=== PATIENT | female | born 1970 | race Caucasian/White ===

== ENCOUNTER → 2017-11-07 09:32 | Outpatient (CLI) | payer BC, SELFPAY ==
[2017-11-07 12:39] LABS: Microalbumin,Random Urine 8.2 mg/L (NO RANGE EST.); Microalbumin:Creatinine Ratio 6.9 mg/g CRE (<30 mg/g CRE)
[2017-11-07 12:58] LABS: Anion Gap 9 (5-15); BUN 9 mg/dL (7-18); BUN/Creat Ratio 10.8 RATIO (10-20); Calcium,Total 8.3 mg/dL (8.5-10.1); Chloride 106 mmol/L (98-107); Cholesterol 178 mg/dL (200); Creatinine, Serum 0.84 mg/dL (0.55-1.02); EST Glomerular Filtration Rate 78 mL/min (>60); Est Glom Filt Rate - Afr Amer 94 mL/min (>60); Glucose 93 mg/dL (74-106); High Density Lipoprotein 47 mg/dL; Potassium 4.1 mmol/L (3.5-5.1); Sodium Level 138 mmol/L (136-145); Triglycerides 235 mg/dL; Very Low Density Lipoprotein 47 mg/dL (5-40)
== END ==
PROVIDERS: Family Provider Family Medicine; PCP Family Medicine; Visit Provider Family Medicine
DX: E11.9 Type 2 diabetes mellitus without complications (principal)
CPT/HCPCS: 36415; 80048; 80061; 82043; 82570

== ENCOUNTER → 2018-01-15 12:14 | Outpatient (CLI) | payer BC, SELFPAY ==
[2018-01-17 20:07] LABS: Alternaria alternata 0.17 kU/L (Class 0/I); Aspergillus fumigatus 0.22 kU/L (Class 0/I); Cedar, Mountain 7.68 kU/L (Class IV); Cladosporium herbarum 0.16 kU/L (Class 0/I); Cockroach, American 1.84 kU/L (Class III); D farinae Mite 3.05 kU/L (Class III); D pteronyssinus 2.67 kU/L (Class III); Hazelnut Tree 4.28 kU/L (Class IV); Hickory, White 8.97 kU/L (Class IV); Mucor racemosus 1.67 kU/L (Class III); Mugwort 8.03 kU/L (Class IV); Mulberry, White 6.09 kU/L (Class IV); Penicillium chrysogen 0.11 kU/L (Class 0/I); Stemphylium herbarum 0.19 kU/L (Class 0/I); Sweet Gum 9.78 kU/L (Class IV)
== END ==
PROVIDERS: Family Provider Family Medicine; PCP Family Medicine; Visit Provider Family Medicine
DX: J45.909 Unspecified asthma, uncomplicated (principal)
CPT/HCPCS: 36415; 86003

== ENCOUNTER → 2018-05-30 09:02 | Outpatient (CLI) | payer BC, SELFPAY ==
[2018-05-30 10:30] LABS: AST(SGOT) 14 U/L (15-37); Alanine Aminotransfer ALT/SGPT 28 U/L (13-56); Albumin, Serum 3.5 g/dL (3.2-5.0); Alkaline Phosphatase 73 U/L (45-117); Anion Gap 10 (5-15); BUN 14 mg/dL (7-18); BUN/Creat Ratio 16.4 RATIO (10-20); Bilirubin, Direct 0.19 mg/dL (0.00-0.30); Chloride 103 mmol/L (98-107); Cholesterol 243 mg/dL (200); Creatinine, Serum 0.85 mg/dL (0.55-1.02); EST Glomerular Filtration Rate 76 mL/min (>60); Est Glom Filt Rate - Afr Amer 92 mL/min (>60); Globulin 3.6 g/dL (2.2-4.2); Glucose 173 mg/dL (74-106); High Density Lipoprotein 56 mg/dL; Potassium 4.3 mmol/L (3.5-5.1); Protein, Total 7.1 g/dL (6.4-8.2); Sodium Level 140 mmol/L (136-145); Triglycerides 304 mg/dL; Very Low Density Lipoprotein 61 mg/dL (5-40)
[2018-05-30 10:36] LABS: Microalbumin,Random Urine 21.7 mg/L (NO RANGE EST.); Microalbumin:Creatinine Ratio 11.9 mg/g CRE (<30 mg/g CRE)
== END ==
PROVIDERS: Family Provider Family Medicine; PCP Family Medicine; Referring Provider Family Medicine; Visit Provider Family Medicine
DX: E11.9 Type 2 diabetes mellitus without complications (principal)
CPT/HCPCS: 36415; 80048; 80061; 80076; 82043; 82570

== ENCOUNTER 2018-08-04 14:51 | Emergency (ER) | payer BC, SELFPAY ==
[2018-08-04 14:53] VITALS: BP 190/95; PULSE 107; RESP 18; TEMP 36.8; O2SAT 96; BMI 38.7
--- NOTE | 2018-08-04 15:11 | CT_ITS ---
STUDY: CT BRAIN WITHOUT CONTRAST REASON FOR EXAM: Female, 48 years old. Vision. Hypertension. RADIATION DOSAGE (If Supplied By Facility): CTDIvol = ( 44.99 ) mGy, DLP = ( 762.36 ) mGycm TECHNIQUE: Transaxial CT imaging of the brain was performed without administration of intravenous contrast material. Individualized dose optimization techniques were used for this CT. COMPARISON: No relevant priors. FINDINGS: Normal soft tissue structures. Normal calvarium. Normal size ventricles and extra-axial spaces for the patient's age. Normal white matter tracts of the cerebral hemispheres. Normal basal ganglia and thalami. Normal brainstem. Normal cerebellum. There is no intracranial hemorrhage. There are no findings of an acute ischemic infarction. Small air-fluid level in the sphenoid sinus. Partial opacification of the ethmoid sinuses. CT/Brain/Head without Contrast IMPRESSION: Ethmoid sinusitis and a sphenoid sinusitis. Electronically Signed: Louie Rice, at 15:46 EDT , Service support ,
--- NOTE | 2018-08-04 15:13 | ED.VISSUMM ---
- ER Visit Summary Date of Service: 08/04/18 Chief Complaint: Visual disturbance History of Present Illness: The patient is a 48 F who presents with visual change in her left eye that began today present 1 hour prior to arrival. Patient states her left eye was slightly blurry but 1 hour prior to arrival she felt a pop around her left eye and her vision became more blurry. Patient states the vision out of her right eye is completely normal. Patient admits to a headache around her left eye. Patient nausea or vomiting. Patient denies any fevers or chills. Patient denies any chest pain or shortness of breath. Patient does admit to photophobia. Patient denies any matting, crusting, discharge, drainage, redness, or foreign body sensation. Patient denies any injury. Physical Examination: Vital signs are stable except for an elevated blood pressure 190/95. Heart rate was slightly elevated at 107. Patient is afebrile. Patient is in no acute distress. Pupils are equal, round, and reactive to light bilaterally. Extraocular muscles are intact. Funduscopic examination was not well visualized due to myosis despite the patient being in a dark room. Cranial nerves II through XII are intact. There are no focal motor or sensory deficits noted. I do not appreciate any facial weakness. Heart was regular rate and rhythm. Lungs are clear and equal bilateral. Abdomen is soft nontender. Test Results: CBC and basic metabolic profile were obtained and were essentially within normal limits. CT scan of the brain was obtained. There is sphenoid sinusitis with no acute intracranial abnormality. Emergency Department Course and Treatment: Patient was given a dose of labetalol here. Patient's blood pressure improved. Case was discussed with Dr. Hinson from ophthalmology. He felt that this was most likely a vitreous hemorrhage. He will follow-up with the patient in the office tomorrow. Patient was instructed to call tomorrow morning to schedule an appointment. Patient was given a prescription for Augmentin to cover for sinusitis. Patient and family understood and were agreeable with the plan. All questions were answered. Disposition: Discharge home Impression: 1. Vitreous hemorrhage 2. Sphenoid sinusitis This note was generated with [employer] software. It may contain incorrect words, spelling, and punctuation that were not noted in review of the chart prior to signing ED Disposition - Plan for ED Patient: Disposition: Home or Assisted Living Diagnosis: Vitreous hemorrhage of left eye, Sphenoid sinusitis Instructions: ED Sinusitis Abx Tx Prescriptions: Amox/Clavulanate Tablet [Augmentin Tablet] 875 mg PO Q12H #20 tab Referrals: Daniel Castorena MD [Primary Care Provider] - Roberto Hinson MD [STAFF PHYSICIAN] - 1 Day Additional Instructions: Call Dr. Hinson's office tomorrow morning. He will see you tomorrow for further evaluation of your eye.
[2018-08-04 15:47] LABS: Absolute Neutrophil Count 4.4 X10^3/uL (2.0-7.7); Basophil# 0.02 X10^3/uL; Basophil% 0.3 % (0-1); Eosinophil# 0.38 X10^3/uL; Hematocrit 39.9 % (37-47); Hemoglobin 12.8 g/dl (12.0-15.0); Lymphocyte % 28.8 % (19-41); Mean Corp Hgb Conc 32.1 g/gl (32-36); Mean Corpuscular Hgb 25.3 pg (27.0-32.0); Mean Corpuscular Volume 78.9 fL (81-99); Mean Platelet Vol. 10.3 fl (6.2-12.0); Monocyte# 0.63 X10^3/uL; Monocyte% 8.2 % (0-10); Neutrophil # 4.41 X10^3/uL (2.7-7.7); Neutrophil % 57.6 % (47-70); Platelet Count 313 K/mm3 (150-450); RBC Distribution Width CV 15.7 % (11.6-14.6); RBC Distribution Width SD 45.2 fl (35.1-43.9); Red Blood Count 5.06 M/mm3 (4.2-5.4); White Blood Count 7.7 K/mm3 (4.4-11.0)
[2018-08-04 15:49] LABS: POSITIVE COUNT NO; POSITIVE DIFFERENTIAL NO; POSITIVE MORPHOLOGY NO
[2018-08-04] MEDS: Ibuprofen 200 MG Tablet 800 MG PO (15:51)
--- NOTE | 2018-08-04 15:53 | ED.RN ---
called pharmacy regarding trandate. will send medication.
[2018-08-04 16:00] VITALS: BP 160/95; PULSE 95; RESP 17; O2SAT 97
[2018-08-04 16:05] LABS: Anion Gap 6 (5-15); BUN 15 mg/dL (7-18); BUN/Creat Ratio 16.4 RATIO (10-20); Calcium,Total 8.7 mg/dL (8.5-10.1); Chloride 109 mmol/L (98-107); Creatinine, Serum 0.92 mg/dL (0.55-1.02); EST Glomerular Filtration Rate 70 mL/min (>60); Est Glom Filt Rate - Afr Amer 84 mL/min (>60); Estimated Creatinine Clearance 70.77 ml/min; Glucose 168 mg/dL (74-106); Potassium 3.9 mmol/L (3.5-5.1); Sodium Level 138 mmol/L (136-145)
[2018-08-04 16:49] VITALS: BP 146/96; PULSE 93; RESP 12; O2SAT 96
== END 2018-08-04 16:57 | disposition home or self-care (01) ==
PROVIDERS: Emergency Provider Emergency Medicine; Family Provider Family Medicine; PCP Family Medicine
DX: H43.12 Vitreous hemorrhage, left eye (principal); J32.3 Chronic sphenoidal sinusitis
CPT/HCPCS: 70450; 80048; 85025; 96374; 99285; A4216

== ENCOUNTER → 2018-08-11 | Outpatient (CLI) | payer BC, SELFPAY ==
[2018-08-04 14:53] VITALS: BMI 38.7
--- NOTE | 2018-08-11 14:00 | CDU_ITS ---
Reason For Study: Headaches Rt. Velocities/BP Lt. Velocities/BP Prox CCA 113/12 cm/sec. Prox CCA 93/25 cm/sec. Mid CCA 109/15 cm/sec. Mid CCA 75/27 cm/sec. Dist CCA 70/24 cm/sec. Dist CCA 82/27 cm/sec. Prox ICA 60/18 cm/sec. Prox ICA 61/24 cm/sec. Mid ICA 67/27 cm/sec. Mid ICA 90/44 cm/sec. Dist ICA 80/39 cm/sec. Dist ICA 81/39 cm/sec. Rt. ICA/CCA = 0.7. Lt. ICA/CCA = 1.2. Prox ECA 82/11 cm/sec. Prox ECA 101/16 cm/sec. Rt. Vert. 50/20 cm/sec. Lt. Vert. 61/20 cm/sec. Right Extracranial There is intimal thickening but no significant atherosclerotic plaque noted in the right common carotid artery. There is heterogeneous, smooth atherosclerotic plaque noted in the right internal carotid artery. There is intimal thickening but no significant atherosclerotic plaque noted in the right external carotid artery. Antegrade flow is noted in the right vertebral artery. Left Extracranial There is intimal thickening but no significant atherosclerotic plaque noted in the left common carotid artery. There is heterogeneous, smooth atherosclerotic plaque noted in the left internal carotid artery. There is intimal thickening but no significant atherosclerotic plaque noted in the left external carotid artery. Antegrade flow is noted in the left vertebral artery. Procedure Carotid Duplex [id number]. Exam performed in department. Interpretation Summary Mild (<50%) stenosis right extracranial internal carotid. Mild (<50%) stenosis left extracranial internal carotid. Flow within the vertebral arteries is antegrade bilaterally. Ordering Physician: Roberto Hinson Referring Physician: Daniel Castorena Performed By: Sugey Maldonado, MILKA, RVT
== END | disposition home or self-care (01) ==
LOC: CVS 13:58
PROVIDERS: Family Provider Family Medicine; PCP Family Medicine; Referring Provider Ophthalmology; Visit Provider Ophthalmology
DX: H35.82 Retinal ischemia (principal)
CPT/HCPCS: 93880

== ENCOUNTER → 2018-08-28 | Outpatient (CLI) | payer BC, SELFPAY ==
[2018-08-04 14:53] VITALS: BMI 38.7
[2018-08-28 12:16] LABS: Absolute Lymphocyte Count 2.21 X10^3/ul (0.83-4.51); Absolute Neutrophil Count 5.2 X10^3/uL (2.0-7.7); Basophil# 0.03 X10^3/uL; Basophil% 0.4 % (0-1); Eosinophil# 0.34 X10^3/uL; Hematocrit 40.9 % (37-47); Hemoglobin 12.7 g/dl (12.0-15.0); Lymphocyte # 2.21 X10^3/ul (4.0); Lymphocyte % 26.1 % (19-41); Mean Corp Hgb Conc 31.1 g/gl (32-36); Mean Corpuscular Hgb 24.8 pg (27.0-32.0); Mean Corpuscular Volume 79.9 fL (81-99); Mean Platelet Vol. 10.6 fl (6.2-12.0); Monocyte# 0.72 X10^3/uL; Monocyte% 8.5 % (0-10); Neutrophil # 5.16 X10^3/uL (2.7-7.7); Neutrophil % 60.8 % (47-70); Platelet Count 350 K/mm3 (150-450); RBC Distribution Width CV 15.2 % (11.6-14.6); RBC Distribution Width SD 43.7 fl (35.1-43.9); Red Blood Count 5.12 M/mm3 (4.2-5.4); White Blood Count 8.5 K/mm3 (4.4-11.0)
[2018-08-28 12:20] LABS: POSITIVE COUNT NO; POSITIVE DIFFERENTIAL NO; POSITIVE MORPHOLOGY NO
[2018-08-28 12:48] LABS: AST(SGOT) 12 U/L (15-37); Alanine Aminotransfer ALT/SGPT 18 U/L (13-56); Albumin, Serum 3.5 g/dL (3.2-5.0); Alkaline Phosphatase 78 U/L (45-117); Anion Gap 9 (5-15); BUN 21 mg/dL (7-18); BUN/Creat Ratio 23.1 RATIO (10-20); Bilirubin, Direct 0.15 mg/dL (0.00-0.30); Calcium,Total 8.6 mg/dL (8.5-10.1); Chloride 111 mmol/L (98-107); Cholesterol 190 mg/dL (200); Creatinine, Serum 0.91 mg/dL (0.55-1.02); EST Glomerular Filtration Rate 71 mL/min (>60); Est Glom Filt Rate - Afr Amer 85 mL/min (>60); Globulin 3.5 g/dL (2.2-4.2); Glucose 169 mg/dL (74-106); High Density Lipoprotein 50 mg/dL; Potassium 4.1 mmol/L (3.5-5.1); Sodium Level 139 mmol/L (136-145); Thyroid Stim Hormone (TSH) 2.44 uIU/mL (0.358-3.74); Triglycerides 184 mg/dL; Very Low Density Lipoprotein 37 mg/dL (5-40)
== END | disposition home or self-care (01) ==
LOC: MFPLAB 09:40
PROVIDERS: Family Provider Family Medicine; PCP Family Medicine; Referring Provider Family Medicine; Visit Provider Family Medicine
DX: E11.9 Type 2 diabetes mellitus without complications (principal); R07.9 Chest pain, unspecified
CPT/HCPCS: 36415; 80048; 80061; 80076; 84443; 85025

== ENCOUNTER → 2018-11-14 | Outpatient (CLI) | payer BC, SELFPAY ==
[2018-11-14 10:53] LABS: Absolute Lymphocyte Count 2.11 X10^3/ul (0.83-4.51); Absolute Neutrophil Count 4.3 X10^3/uL (2.0-7.7); Basophil# 0.03 X10^3/uL; Basophil% 0.4 % (0-1); Eosinophil# 0.25 X10^3/uL; Eosinophils% 3.3 % (0-5); Hemoglobin 11.7 g/dl (12.0-15.0); Lymphocyte # 2.11 X10^3/ul (4.0); Lymphocyte % 28.2 % (19-41); Mean Corp Hgb Conc 30.8 g/gl (32-36); Mean Corpuscular Hgb 23.6 pg (27.0-32.0); Mean Corpuscular Volume 76.6 fL (81-99); Mean Platelet Vol. 10.7 fl (6.2-12.0); Monocyte# 0.78 X10^3/uL; Monocyte% 10.4 % (0-10); Neutrophil # 4.28 X10^3/uL (2.7-7.7); Neutrophil % 57.4 % (47-70); Platelet Count 365 K/mm3 (150-450); RBC Distribution Width CV 14.7 % (11.6-14.6); RBC Distribution Width SD 39.9 fl (35.1-43.9); Red Blood Count 4.96 M/mm3 (4.2-5.4); White Blood Count 7.5 K/mm3 (4.4-11.0)
[2018-11-14 10:58] LABS: POSITIVE COUNT NO; POSITIVE DIFFERENTIAL NO; POSITIVE MORPHOLOGY NO
[2018-11-14 10:59] LABS: ALB/GLOB Ratio 0.8 RATIO (0.9-2.4); AST(SGOT) 13 U/L (15-37); Alanine Aminotransfer ALT/SGPT 26 U/L (13-56); Albumin, Serum 3.3 g/dL (3.2-5.0); Alkaline Phosphatase 76 U/L (45-117); Anion Gap 7 (5-15); BUN 14 mg/dL (7-18); BUN/Creat Ratio 15.2 RATIO (10-20); Calcium,Total 8.9 mg/dL (8.5-10.1); Chloride 108 mmol/L (98-107); Creatinine, Serum 0.92 mg/dL (0.55-1.02); EST Glomerular Filtration Rate 69 mL/min (>60); Est Glom Filt Rate - Afr Amer 84 mL/min (>60); Globulin 3.9 g/dL (2.2-4.2); Glucose 169 mg/dL (74-106); Potassium 4.2 mmol/L (3.5-5.1); Protein, Total 7.2 g/dL (6.4-8.2); Sodium Level 140 mmol/L (136-145)
== END | disposition home or self-care (01) ==
LOC: MFPLAB 08:38
PROVIDERS: Family Provider Family Medicine; PCP Family Medicine; Visit Provider Family Medicine
DX: R19.8 Other specified symptoms and signs involving the digestive system and abdomen (principal)
CPT/HCPCS: 36415; 80053; 85025

== ENCOUNTER → 2018-11-14 | Outpatient (CLI) | payer BC, SELFPAY ==
--- NOTE | 2018-11-14 11:08 | CT_ITS ---
STUDY: CT ABDOMEN AND PELVIS WITH CONTRAST REASON FOR EXAM: Female, 48 years old. One week history of right-sided abdominal pain with vomiting. RADIATION DOSAGE (If Supplied By Facility): CTDIvol = ( 23.72 ) mGy, DLP = ( 1340.60 ) mGycm TECHNIQUE: Transaxial images were obtained from the dome of the diaphragm to the symphysis pubis with oral contrast. 100mL IV/Oral Isovue 300 was administered. Sagittal and coronal images were reconstructed. Individualized dose optimization techniques were used for this CT. COMPARISON: None. FINDINGS: The visualized lung bases are unremarkable. The visualized portions of the heart are within normal limits. There is decreased attenuation of the liver consistent with steatosis. Normal gallbladder and extrahepatic biliary system. Normal spleen. Normal pancreas. Normal bilateral adrenal glands. Normal right kidney. Normal left kidney. There is a small hiatal hernia. Normal small intestine. There are multiple colonic diverticula consistent with diverticulosis. The appendix is visualized and appears normal. There is scattered atherosclerotic calcification of the abdominal aorta, without a demonstrated aneurysm. Normal inferior vena cava. Normal retroperitoneum. Normal urinary bladder. Normal abdominal wall. There are mild degenerative changes of the visualized lumbar spine. CT/Abdomen/Pelvis WITH Contrast IMPRESSION: Fatty infiltration of the liver. No significant abnormality is seen. Electronically Signed: Louie Rice, at 14:25 EDT , Service support ,
== END | disposition home or self-care (01) ==
LOC: CT 11:05
PROVIDERS: Family Provider Family Medicine; PCP Family Medicine; Visit Provider Family Medicine
DX: R19.8 Other specified symptoms and signs involving the digestive system and abdomen (principal)
CPT/HCPCS: 74177; Q9967

== ENCOUNTER → 2019-03-04 | Outpatient (CLI) | payer BC, SELFPAY ==
[2019-03-04 14:21] LABS: Anion Gap 9 (5-15); BUN 14 mg/dL (7-18); BUN/Creat Ratio 14.8 RATIO (10-20); Chloride 106 mmol/L (98-107); Cholesterol 172 mg/dL (200); Creatinine, Serum 0.94 mg/dL (0.55-1.02); EST Glomerular Filtration Rate 67 mL/min (>60); Est Glom Filt Rate - Afr Amer 81 mL/min (>60); Glucose 129 mg/dL (74-106); High Density Lipoprotein 57 mg/dL; Potassium 4.1 mmol/L (3.5-5.1); Sodium Level 139 mmol/L (136-145); Triglycerides 174 mg/dL; Very Low Density Lipoprotein 35 mg/dL (5-40)
== END | disposition home or self-care (01) ==
LOC: MFPLAB 11:58
PROVIDERS: Family Provider Family Medicine; PCP Family Medicine; Visit Provider Family Medicine
DX: E11.9 Type 2 diabetes mellitus without complications (principal)
CPT/HCPCS: 36415; 80048; 80061

== ENCOUNTER → 2019-09-03 | Outpatient (CLI) | payer BC, SELFPAY ==
--- NOTE | 2019-09-03 16:47 | RAD_ITS ---
STUDY: X-RAY CHEST REASON FOR EXAM: Female, 49 years old. mid chest pain, woke up this morning -- some burning TECHNIQUE: 2 views COMPARISON: Prior chest radiograph on April 10, 2017 FINDINGS: The lungs are clear and expanded. There is no demonstrated pleural abnormality. Normal size heart. Normal mediastinum and nicolas. Normal visualized pulmonary arteries. Normal visualized aortic arch and descending thoracic aorta. Normal visualized thoracic spine. Normal visualized ribs, clavicles, and shoulders. There is no demonstrated abnormality of the visualized soft tissue structures of the upper abdomen. RAD/Chest PA and Lateral IMPRESSION: Normal x-ray examination of the chest. Electronically Signed: Miryam Vargas MD at 17:03 EDT , Service support ,
[2019-09-03 17:33] LABS: Absolute Lymphocyte Count 2.87 X10^3/uL (0.83-4.51); Basophil# 0.04 X10^3/uL; Basophil% 0.4 % (0-1); Eosinophil# 0.38 X10^3/uL; Eosinophils% 3.7 % (0-5); Hematocrit 42.7 % (37-47); Hemoglobin 12.8 g/dL (12.0-15.0); Lymphocyte # 2.87 X10^3/ul (4.0); Lymphocyte % 28.2 % (19-41); Mean Corpuscular Hgb 23.3 pg (27.0-32.0); Mean Corpuscular Volume 77.6 fL (81-99); Mean Platelet Vol. 9.9 fl (6.2-12.0); Monocyte# 0.87 X10^3/uL; Monocyte% 8.5 % (0-10); NRBC Flagged by Analyzer 0 % (0-5); Platelet Count 330 K/mm3 (150-450); RBC Distribution Width CV 17.2 % (11.6-14.6); White Blood Count 10.2 K/mm3 (4.4-11.0)
[2019-09-03 17:59] LABS: D-Dimer Quantitative (DVT/PE) <= 0.27 FEU/ug/m (0.27-0.49)
[2019-09-03 18:21] LABS: Anion Gap 9 (5-15); BUN 14 mg/dL (7-18); BUN/Creat Ratio 14.8 RATIO (10-20); Calcium,Total 9.2 mg/dL (8.5-10.1); Chloride 106 mmol/L (98-107); Creatinine, Serum 0.94 mg/dL (0.55-1.02); EST Glomerular Filtration Rate 67 mL/min (>60); Est Glom Filt Rate - Afr Amer 81 mL/min (>60); Glucose 118 mg/dL (74-106); Potassium 3.8 mmol/L (3.5-5.1); Sodium Level 138 mmol/L (136-145)
== END | disposition home or self-care (01) ==
LOC: MTLAB 16:45
PROVIDERS: PCP Family Medicine; Referring Provider Family Medicine; Visit Provider Family Medicine
DX: R07.9 Chest pain, unspecified (principal)
CPT/HCPCS: 36415; 71046; 80048; 85025; 85379

== ENCOUNTER → 2020-05-26 15:19 | Outpatient (CLI) | payer BC, SELFPAY ==
[2020-05-26 18:15] LABS: Anion Gap 10 (5-15); BUN 16 mg/dL (7-18); BUN/Creat Ratio 18.8 RATIO (10-20); Chloride 106 mmol/L (98-107); Cholesterol 175 mg/dL (200); Creatinine, Serum 0.85 mg/dL (0.55-1.02); EST Glomerular Filtration Rate 75 mL/min (>60); Est Glom Filt Rate - Afr Amer 91 mL/min (>60); Glucose 93 mg/dL (74-106); High Density Lipoprotein 58 mg/dL; Potassium 4.5 mmol/L (3.5-5.1); Sodium Level 139 mmol/L (136-145); Triglycerides 221 mg/dL; Very Low Density Lipoprotein 44 mg/dL (5-40)
== END ==
PROVIDERS: PCP Family Medicine; Referring Provider Family Medicine; Visit Provider Family Medicine
DX: E11.9 Type 2 diabetes mellitus without complications (principal)
CPT/HCPCS: 36415; 80048; 80061; 82043

== ENCOUNTER → 2020-06-15 | Outpatient (CLI) | payer BC, SELFPAY ==
[2020-06-15 09:39] VITALS: BMI 42.0
[2020-06-17 21:05] LABS: HPV APTIMA, High Risk Negative (Negative)
== END | disposition home or self-care (01) ==
PROVIDERS: PCP Family Medicine; Referring Provider Nurse Practitioner Women's Health; Visit Provider Nurse Practitioner Women's Health
DX: N76.1 Subacute and chronic vaginitis (principal); Z12.4 Encounter for screening for malignant neoplasm of cervix
CPT/HCPCS: 87070; 87205; 87624; 88175; G0145

== ENCOUNTER → 2020-06-22 12:03 | Outpatient (CLI) | payer BC, SELFPAY ==
[2020-06-15 09:39] VITALS: BMI 42.0
--- NOTE | 2020-06-22 12:06 | US_ITS ---
STUDY: ULTRASOUND OF THE FEMALE PELVIS - COMPLETE REASON FOR EXAM: Female, 50 years old. MID PELVIC PAIN X 6 MONTHS -- TUBAL LIGATION 94 -- MENORRHAGIA LMP: 06/07/2020. TECHNIQUE: Transabdominal and Transvaginal TECHNICAL QUALITY: Adequate. COMPARISON: None. FINDINGS: The uterus is anteverted and is in a midline position. The uterus measures 11.6 cm x 6.8 cm x 5.2 cm. There is a Nabothian cyst of the cervix. The endometrium measures 5 mm in thickness, and is hyperechoic. There is no demonstrated endometrial mass. 3 fibroids are seen. The largest measures 3.6 cm x 3.6 cm x 3.1 cm. I.U.D. - The patient does not have an I.U.D. The right ovary is visualized. The right ovary measures 3 cm x 2.6 cm x 1.3 cm. A dominant follicle measuring 1.2 cm x 1.7 cm x 1 cm is seen within the right ovary. There is no visualized right adnexal mass or complex lesion. There is normal arterial and normal venous vascularity. The left ovary is non-visualized. There is no fluid in the cul-de-sac. The pre void volume of the bladder was 169 ml. US/Transvaginal Non- IMPRESSION: Enlarged fibroid uterus. The largest fibroid measures 3.6 cm x 3.6 cm x 3.1 cm. Dominant right ovarian follicle. Electronically Signed: Louie Rice MD at 14:58 EST , Service support ,
--- NOTE | 2020-06-22 12:06 | US_ITS ---
STUDY: ULTRASOUND OF THE FEMALE PELVIS - COMPLETE REASON FOR EXAM: Female, 50 years old. MID PELVIC PAIN X 6 MONTHS -- TUBAL LIGATION 94 -- MENORRHAGIA LMP: 06/07/2020. TECHNIQUE: Transabdominal and Transvaginal TECHNICAL QUALITY: Adequate. COMPARISON: None. FINDINGS: The uterus is anteverted and is in a midline position. The uterus measures 11.6 cm x 6.8 cm x 5.2 cm. There is a Nabothian cyst of the cervix. The endometrium measures 5 mm in thickness, and is hyperechoic. There is no demonstrated endometrial mass. 3 fibroids are seen. The largest measures 3.6 cm x 3.6 cm x 3.1 cm. I.U.D. - The patient does not have an I.U.D. The right ovary is visualized. The right ovary measures 3 cm x 2.6 cm x 1.3 cm. A dominant follicle measuring 1.2 cm x 1.7 cm x 1 cm is seen within the right ovary. There is no visualized right adnexal mass or complex lesion. There is normal arterial and normal venous vascularity. The left ovary is non-visualized. There is no fluid in the cul-de-sac. The pre void volume of the bladder was 169 ml. US/Pelvic (Non ) IMPRESSION: Enlarged fibroid uterus. The largest fibroid measures 3.6 cm x 3.6 cm x 3.1 cm. Dominant right ovarian follicle. Electronically Signed: Louie Rice MD at 14:58 EST , Service support ,
== END ==
PROVIDERS: PCP Family Medicine; Referring Provider Obstetrics & Gynecology; Visit Provider Obstetrics & Gynecology
DX: N92.1 Excessive and frequent menstruation with irregular cycle (principal); R10.2 Pelvic and perineal pain
CPT/HCPCS: 76830; 76856; 93976

== ENCOUNTER 2020-07-29 13:37 | Outpatient (RCR) | payer MEDICARE, SELFPAY ==
[2020-07-06 10:00] VITALS: BMI 41.5
== END 2020-10-11 23:59 ==
LOC: IMMUN 13:37
PROVIDERS: PCP Family Medicine; Visit Provider Family Medicine
DX: Z23 Encounter for immunization (principal)
CPT/HCPCS: 0001A; 0002A; 91300

== ENCOUNTER → 2020-08-24 14:28 | Outpatient (CLI) | payer MEDICAID, SELFPAY ==
[2020-07-06 10:00] VITALS: BMI 41.5
[2020-08-24 17:59] LABS: Erythrocyte Sedimentation Rate 25 mm/hr (0-30)
[2020-08-24 18:03] LABS: Anion Gap 6 (5-15); BUN 13 mg/dL (7-18); Calcium,Total 9.3 mg/dL (8.5-10.1); Chloride 107 mmol/L (98-107); Cholesterol 184 mg/dL (200); Creatinine, Serum 0.81 mg/dL (0.55-1.02); EST Glomerular Filtration Rate 80 mL/min (>60); Est Glom Filt Rate - Afr Amer 96 mL/min (>60); Glucose 122 mg/dL (74-106); High Density Lipoprotein 52 mg/dL; Potassium 4.2 mmol/L (3.5-5.1); Sodium Level 138 mmol/L (136-145); Thyroid Stim Hormone (TSH) 1.73 uIU/mL (0.358-3.74); Triglycerides 182 mg/dL; Very Low Density Lipoprotein 36 mg/dL (5-40)
[2020-08-24 18:10] LABS: Microalbumin,Random Urine 19.3 mg/L (NO RANGE EST.); Microalbumin:Creatinine Ratio 28.8 mg/g CRE (<30 mg/g CRE)
[2020-08-26 16:19] LABS: ANTINUCLEAR ANTIBODIES DIRECT Negative (Negative)
== END ==
PROVIDERS: PCP Family Medicine; Visit Provider Family Medicine
DX: E11.9 Type 2 diabetes mellitus without complications (principal); E66.9 Obesity, unspecified; M25.50 Pain in unspecified joint
CPT/HCPCS: 36415; 80048; 80061; 82043; 82570; 84443; 85652; 86038

== ENCOUNTER 2020-08-31 11:09 | Outpatient (RCR) | payer MEDICAID, SELFPAY ==
[2020-07-06 10:00] VITALS: BMI 41.5
== END 2020-09-02 23:59 | disposition home or self-care (01) ==
LOC: DC 11:09
PROVIDERS: PCP Family Medicine; Visit Provider Family Medicine
DX: E11.65 Type 2 diabetes mellitus with hyperglycemia (principal)
CPT/HCPCS: G0108

== ENCOUNTER 2020-09-13 10:31 | Outpatient (RCR) | payer MEDICAID, SELFPAY ==
[2020-07-06 10:00] VITALS: BMI 41.5
== END 2020-10-03 23:59 ==
LOC: DC 10:31
PROVIDERS: PCP Family Medicine; Visit Provider Family Medicine
DX: E11.9 Type 2 diabetes mellitus without complications (principal)
CPT/HCPCS: 97802; G0108

== ENCOUNTER 2020-10-04 09:49 | Outpatient (RCR) | payer MEDICAID, SELFPAY ==
[2020-07-06 10:00] VITALS: BMI 41.5
== END 2020-10-04 23:59 | disposition home or self-care (01) ==
LOC: DC 09:49
PROVIDERS: PCP Family Medicine; Visit Provider Family Medicine
DX: E11.65 Type 2 diabetes mellitus with hyperglycemia (principal)
CPT/HCPCS: 97803

== ENCOUNTER → 2021-05-01 12:03 | Outpatient (CLI) | payer MEDICAID, SELFPAY ==
[2021-05-01 15:36] LABS: Anion Gap 8 (5-15); BUN 18 mg/dL (7-18); BUN/Creat Ratio 21.7 RATIO (10-20); Calcium,Total 9.1 mg/dL (8.5-10.1); Chloride 105 mmol/L (98-107); Cholesterol 212 mg/dL (200); Creatinine, Serum 0.83 mg/dL (0.55-1.02); EST Glomerular Filtration Rate 78 mL/min (>60); Est Glom Filt Rate - Afr Amer 94 mL/min (>60); Glucose 151 mg/dL (74-106); High Density Lipoprotein 58 mg/dL; Sodium Level 139 mmol/L (136-145); Triglycerides 195 mg/dL; Very Low Density Lipoprotein 39 mg/dL (5-40)
[2021-05-01 15:53] LABS: Microalbumin,Random Urine 27.8 mg/L (NO RANGE EST.)
== END ==
PROVIDERS: PCP Family Medicine; Visit Provider Family Medicine
DX: E11.9 Type 2 diabetes mellitus without complications (principal)
CPT/HCPCS: 36415; 80048; 80061; 82043

== ENCOUNTER 2021-07-28 10:54 | Outpatient (CLI) | payer MEDICAID, SELFPAY ==
[2021-07-28 12:36] LABS: Anion Gap 6 (5-15); BUN 19 mg/dL (7-18); BUN/Creat Ratio 20.7 RATIO (10-20); Calcium,Total 9.4 mg/dL (8.5-10.1); Chloride 106 mmol/L (98-107); Cholesterol 162 mg/dL (200); Creatinine, Serum 0.92 mg/dL (0.55-1.02); EST Glomerular Filtration Rate 69 mL/min (>60); Est Glom Filt Rate - Afr Amer 83 mL/min (>60); Glucose 110 mg/dL (74-106); High Density Lipoprotein 49 mg/dL; Potassium 4.2 mmol/L (3.5-5.1); Sodium Level 137 mmol/L (136-145); Triglycerides 207 mg/dL; Very Low Density Lipoprotein 41 mg/dL (5-40)
== END 2021-07-28 23:59 | disposition home or self-care (01) ==
LOC: MFPLAB 10:56
PROVIDERS: PCP Family Medicine; Referring Provider Family Medicine; Visit Provider Family Medicine
DX: E11.9 Type 2 diabetes mellitus without complications (principal)
CPT/HCPCS: 36415; 80048; 80061

== ENCOUNTER → 2022-04-23 | Outpatient (CLI) | payer MEDICAID, SELFPAY ==
[2022-04-23 12:10] LABS: Microalbumin,Random Urine 10.3 mg/L (NO RANGE EST.); Microalbumin:Creatinine Ratio 7.9 mg/g CRE (<30 mg/g CRE)
[2022-04-23 12:22] LABS: Anion Gap 8 (5-15); BUN 14 mg/dL (7-18); BUN/Creat Ratio 16.1 RATIO (10-20); Calcium,Total 9.1 mg/dL (8.5-10.1); Chloride 106 mmol/L (98-107); Cholesterol 169 mg/dL (200); Creatinine, Serum 0.87 mg/dL (0.55-1.02); EST Glomerular Filtration Rate 73 mL/min (>60); Est Glom Filt Rate - Afr Amer 89 mL/min (>60); Glucose 92 mg/dL (74-106); High Density Lipoprotein 56 mg/dL; Potassium 4.2 mmol/L (3.5-5.1); Sodium Level 139 mmol/L (136-145); Triglycerides 218 mg/dL; Very Low Density Lipoprotein 44 mg/dL (5-40)
== END | disposition home or self-care (01) ==
LOC: MFPLAB 10:52
PROVIDERS: PCP Family Medicine; Visit Provider Family Medicine
DX: E11.9 Type 2 diabetes mellitus without complications (principal)
CPT/HCPCS: 36415; 80048; 80061; 82043; 82570

== ENCOUNTER → 2022-06-05 | Outpatient (CLI) | payer MEDICAID, SELFPAY ==
--- NOTE | 2022-06-05 14:57 | RAD_ITS ---
EXAM: XR CHEST, 2 VIEWS CLINICAL INDICATION: short of breath TECHNIQUE: Frontal and lateral views of the chest. This report was created using [employer] report generation technology. COMPARISON: 09/03/2019 FINDINGS: LUNGS AND PLEURAL SPACES: Unremarkable. No consolidation or edema. No pneumothorax. No effusion. HEART: Unremarkable. Cardiac silhouette not enlarged. MEDIASTINUM: Central airways and mediastinal contour are unremarkable. BONES/JOINTS: Unremarkable. SOFT TISSUES: Unremarkable. RAD/Chest PA and Lateral IMPRESSION: No radiographic evidence of acute cardiopulmonary disease. Electronically Signed: Adonis Myers MD at 18:08 EST ,
== END | disposition home or self-care (01) ==
LOC: MTRAD 14:57
PROVIDERS: PCP Family Medicine; Referring Provider Nurse Practitioner Family; Visit Provider Nurse Practitioner Family
DX: R06.02 Shortness of breath (principal)
CPT/HCPCS: 71046

== ENCOUNTER → 2022-10-24 | Outpatient (CLI) | payer MEDICAID, SELFPAY ==
[2022-10-24 13:23] LABS: BUN 16 mg/dL (7-18); Creatinine, Serum 0.86 mg/dL (0.55-1.02); Glucose 129 mg/dL (74-106)
[2022-10-24 13:24] LABS: Anion Gap 4 (5-15); BUN/Creat Ratio 18.6 RATIO (10-20); Calcium,Total 9.4 mg/dL (8.5-10.1); Chloride 106 mmol/L (98-107); Cholesterol 197 mg/dL (200); EST Glomerular Filtration Rate 74 mL/min (>60); Est Glom Filt Rate - Afr Amer 89 mL/min (>60); High Density Lipoprotein 53 mg/dL; Potassium 4.3 mmol/L (3.5-5.1); Sodium Level 138 mmol/L (136-145); Triglycerides 220 mg/dL; Very Low Density Lipoprotein 44 mg/dL (5-40)
== END | disposition home or self-care (01) ==
LOC: MFPLAB 10:34
PROVIDERS: PCP Family Medicine; Visit Provider Family Medicine
DX: E11.9 Type 2 diabetes mellitus without complications (principal)
CPT/HCPCS: 36415; 80048; 80061

== ENCOUNTER → 2023-01-25 | Outpatient (CLI) | payer MEDICAID, SELFPAY ==
[2023-01-25 12:48] LABS: Microalbumin,Random Urine 14.7 mg/L (NO RANGE EST.); Microalbumin:Creatinine Ratio 10.9 mg/g CRE (<30 mg/g CRE)
[2023-01-25 13:00] LABS: Hemoglobin A1c 8.3 % (3.8-5.6)
[2023-01-25 13:07] LABS: Anion Gap 5 (5-15); BUN 15 mg/dL (7-18); BUN/Creat Ratio 15.6 RATIO (10-20); Calcium,Total 8.9 mg/dL (8.5-10.1); Chloride 107 mmol/L (98-107); Cholesterol 202 mg/dL (200); Creatinine, Serum 0.96 mg/dL (0.55-1.02); EST Glomerular Filtration Rate 65 mL/min (>60); Est Glom Filt Rate - Afr Amer 78 mL/min (>60); Glucose 148 mg/dL (74-106); High Density Lipoprotein 50 mg/dL; Potassium 4.1 mmol/L (3.5-5.1); Sodium Level 138 mmol/L (136-145); Triglycerides 317 mg/dL; Very Low Density Lipoprotein 63 mg/dL (5-40)
== END | disposition home or self-care (01) ==
LOC: MFPLAB 10:25
PROVIDERS: PCP Family Medicine; Visit Provider Family Medicine
DX: E11.9 Type 2 diabetes mellitus without complications (principal)
CPT/HCPCS: 36415; 80048; 80061; 82043; 82570; 83036

== ENCOUNTER → 2023-02-11 | Outpatient (CLI) | payer MEDICAID, SELFPAY ==
--- NOTE | 2023-02-11 11:20 | RAD_ITS ---
EXAM: XR RIGHT CALCANEUS, 2 OR MORE VIEWS CLINICAL INDICATION: PAIN TECHNIQUE: 2 views. COMPARISON: No relevant prior studies available. FINDINGS: BONES/JOINTS: Mild ossification at the Achilles tendon insertion on the posterior calcaneus on the lateral view appears incidental and chronic. No calcaneal fracture. Intact tarsal bones. Preservation of the joint space. No sclerotic or destructive changes observed. SOFT TISSUES: No soft tissue gas. The heel pad is mildly thickened at 2 cm. RAD/Calcaneus min 2 Views IMPRESSION: Mildly prominent heel pad. Electronically Signed: Cookie Loredo MD at 6:27 EDT ,
== END | disposition home or self-care (01) ==
PROVIDERS: PCP Family Medicine; Referring Provider Family Medicine; Visit Provider Family Medicine
DX: M79.671 Pain in right foot (principal)
CPT/HCPCS: 73650

== ENCOUNTER → 2023-07-22 | Outpatient (CLI) | payer MEDICAID, SELFPAY ==
[2023-07-22 17:06] LABS: Anion Gap 9 (5-15); BUN 18 mg/dL (7-18); BUN/Creat Ratio 18.8 RATIO (10-20); Calcium,Total 9.3 mg/dL (8.5-10.1); Chloride 107 mmol/L (98-107); Cholesterol 154 mg/dL (200); Creatinine, Serum 0.96 mg/dL (0.55-1.02); EST Glomerular Filtration Rate 65 mL/min (>60); Est Glom Filt Rate - Afr Amer 79 mL/min (>60); Glucose 150 mg/dL (74-106); High Density Lipoprotein 48 mg/dL; Potassium 4.3 mmol/L (3.5-5.1); Sodium Level 140 mmol/L (136-145); Triglycerides 260 mg/dL; Very Low Density Lipoprotein 52 mg/dL (5-40)
== END | disposition home or self-care (01) ==
LOC: MFPLAB 11:34
PROVIDERS: PCP Family Medicine; Visit Provider Family Medicine
DX: E11.9 Type 2 diabetes mellitus without complications (principal)
CPT/HCPCS: 36415; 80048; 80061

== ENCOUNTER → 2023-10-18 | Outpatient (CLI) | payer MEDICAID, SELFPAY ==
--- NOTE | 2023-10-18 13:21 | BI_ITS ---
MAMMOGRAPHY - BILATERAL SCREENING REASON FOR EXAM: Female, 53 years old. Routine annual screening examination. PERTINENT HISTORY: Mother with breast cancer. Grandmother with breast cancer. TECHNIQUE: Digital bilateral breast dmitry (3D mammographic acquisition) in the CC and MLO projections. 2-D mediolateral oblique (MLO) and craniocaudad (CC) views of both breasts were obtained. CAD: Full Field Digital Mammography with Computer Added Detection was performed. COMPARISON: None. Baseline examination. FINDINGS: Breast Composition: There are scattered areas of fibroglandular density. There are no dominant masses or suspicious calcifications. No other significant abnormalities are identified. BI/SCRN MAMM (CAD)W/DMITRY BILAT IMPRESSION: Negative screening mammogram. Yearly followup mammogram recommended. (A) ASSESSMENT CATEGORY: BIRADS Category 1: Negative. A letter regarding these results will be sent to the patient by the facility within 30 days. Approximately 10% of breast cancers are not detected by mammography. A normal mammogram should not delay biopsy of a clinically suspicious abnormality. [id number] Electronically Signed: Louie Rice MD at 14:43 EDT ,
== END | disposition home or self-care (01) ==
LOC: OPBI 13:20
PROVIDERS: PCP Family Medicine; Referring Provider Nurse Practitioner Family; Visit Provider Nurse Practitioner Family
DX: Z12.31 Encounter for screening mammogram for malignant neoplasm of breast (principal); Z80.3 Family history of malignant neoplasm of breast
CPT/HCPCS: 77063; 77067

== ENCOUNTER → 2024-01-16 | Outpatient (CLI) | payer MEDICAID, SELFPAY ==
[2024-01-16 12:44] LABS: Microalbumin,Random Urine 10.6 mg/L (NO RANGE EST.); Microalbumin:Creatinine Ratio 9.1 mg/g CRE (<30 mg/g CRE)
[2024-01-16 12:54] LABS: ALB/GLOB Ratio 0.9 RATIO (0.9-2.4); AST(SGOT) 12 U/L (15-37); Alanine Aminotransfer ALT/SGPT 27 U/L (13-56); Albumin, Serum 3.4 g/dL (3.2-5.0); Alkaline Phosphatase 73 U/L (45-117); Anion Gap 7 (5-15); BUN 20 mg/dL (7-18); BUN/Creat Ratio 24.1 RATIO (10-20); Calcium,Total 9.4 mg/dL (8.5-10.1); Chloride 104 mmol/L (98-107); Cholesterol 175 mg/dL (200); Creatinine, Serum 0.83 mg/dL (0.55-1.02); EST Glomerular Filtration Rate 77 mL/min (>60); Est Glom Filt Rate - Afr Amer 93 mL/min (>60); Globulin 3.6 g/dL (2.2-4.2); Glucose 140 mg/dL (74-106); High Density Lipoprotein 60 mg/dL; Potassium 4.2 mmol/L (3.5-5.1); Sodium Level 138 mmol/L (136-145); Triglycerides 242 mg/dL; Very Low Density Lipoprotein 48 mg/dL (5-40)
== END | disposition home or self-care (01) ==
LOC: MFPLAB 10:45
PROVIDERS: PCP Family Medicine; Visit Provider Family Medicine
DX: E11.9 Type 2 diabetes mellitus without complications (principal)
CPT/HCPCS: 36415; 80053; 80061; 82043; 82570

== ENCOUNTER → 2024-02-19 | Outpatient (CLI) | payer MEDICAID, SELFPAY | END | disposition home or self-care (01) | LOC: MFPLAB 11:51 → LABSPEC 11:51 | PROVIDERS: PCP Family Medicine; Visit Provider Family Medicine | DX: N39.0 Urinary tract infection, site not specified (principal) | CPT/HCPCS: 87077; 87086; 87088; 87186 ==

== ENCOUNTER → 2024-07-15 | Outpatient (CLI) | payer MEDICAID, SELFPAY ==
[2024-07-15 12:20] LABS: Absolute Lymphocyte Count 3.35 X10^3/uL (0.83-4.51); Absolute Neutrophil Count 4.7 X10^3/uL (2.0-7.7); Basophil# 0.06 X10^3/uL; Basophil% 0.6 % (0-1); Eosinophil# 0.36 X10^3/uL; Eosinophils% 3.9 % (0-5); Hematocrit 44.7 % (37-47); Hemoglobin 14.2 g/dL (12.0-15.0); Lymphocyte # 3.35 X10^3/ul (0.83-4.51); Mean Corp Hgb Conc 31.8 g/dL (32-36); Mean Corpuscular Hgb 27.6 pg (27.0-32.0); Mean Corpuscular Volume 86.8 fL (81-99); Mean Platelet Vol. 10.1 fl (6.2-12.0); Monocyte# 0.76 X10^3/uL; Monocyte% 8.2 % (0-10); NRBC Flagged by Analyzer 0 % (0-5); Neutrophil # 4.74 X10^3/uL (2.7-7.7); Neutrophil % 50.9 % (47-70); Platelet Count 362 K/mm3 (150-450); RBC Distribution Width CV 13.7 % (11.6-14.6); RBC Distribution Width SD 43.7 fl (35.1-43.9); Red Blood Count 5.15 M/mm3 (4.2-5.4); White Blood Count 9.3 K/mm3 (4.4-11.0)
[2024-07-15 13:03] LABS: Anion Gap 15 (5-15); BUN 17 mg/dL (4-19); BUN/Creat Ratio 18.6 RATIO (10-20); Calcium,Total 9.7 mg/dL (7.6-11.0); Carbon Dioxide 20.8 mmol/L (21.0-32.0); Chloride 105 mmol/L (98-108); Creatinine, Serum 0.89 mg/dL (0.70-1.20); EST Glomerular Filtration Rate 78 (>60); Glucose 115 mg/dL (70-99); Potassium 4.3 mmol/L (3.3-5.1); Sodium Level 141 mmol/L (133-145)
[2024-07-15 13:10] LABS: Vitamin D,25 Hydroxy 33.7 ng/mL (30-100)
[2024-07-20 11:08] LABS: Cotinine Screen Blood <1.0 ng/mL (.); Nicotine Blood <1.0 ng/mL (.)
== END | disposition home or self-care (01) ==
LOC: MFPLAB 09:40
PROVIDERS: PCP Family Medicine; Referring Provider Family Medicine; Visit Provider Family Medicine
DX: Z01.818 Encounter for other preprocedural examination (principal)
CPT/HCPCS: 80323; 36415; 80048; 82306; 85025; G0480

== ENCOUNTER 2024-08-04 22:51 | Observation (INO) | payer MEDICAID, SELFPAY ==
[2024-08-04 22:52] VITALS: BP 170/114; PULSE 209; PULSE 210; RESP 20; RESP 32; TEMP 36.6; O2SAT 96; O2SAT 97; BMI 43.5
--- NOTE | 2024-08-04 22:55 | EKG12_ITS ---
Test Reason : DYSRHYTHMIA Blood Pressure : */* mmHG Vent. Rate : 118 BPM Atrial Rate : 118 BPM P-R Int : 140 ms QRS Dur : 76 ms QT Int : 308 ms P-R-T Axes : 75 89 57 degrees QTcB Int : 431 ms Poor data quality, interpretation may be adversely affected Sinus tachycardia Low voltage QRS POOR RWAVE PROGRESSION Abnormal ECG Confirmed by Zohaib Shin ([id number]), multimedia editor AFTAB SINGER ([id number]) on 08/05/2024 7:56:29 AM Referred By: Confirmed By: Zohaib Shin
[2024-08-04 22:58] VITALS: O2SAT 96
--- NOTE | 2024-08-04 23:00 | EKG12_ITS ---
Test Reason : CP Blood Pressure : */* mmHG Vent. Rate : 209 BPM Atrial Rate : * BPM P-R Int : * ms QRS Dur : 66 ms QT Int : 204 ms P-R-T Axes : * 90 -64 degrees QTcB Int : 380 ms Critical Test Result: High HR Supraventricular tachycardia Rightward axis Low voltage QRS Poor R wave progression Abnormal ECG Confirmed by Zohaib Shin ([id number]), script editor AFTAB SINGER ([id number]) on 08/05/2024 7:56:52 AM Referred By: SERA Confirmed By: Zohaib Shin
[2024-08-04] MEDS: Adenosine 6 MG/2 ML Syringe IV (23:02)
[2024-08-04] MEDS: Adenosine 6 MG/2 ML Syringe 12 MG IV (23:04)
--- NOTE | 2024-08-04 23:06 | ED.VIS.CHEST ---
HPI History of Present Illness Chief Complaint: Chest Pain Detail of Chief Complaint: No chest pain. Palpitations. Exhilarated heart rate. Informant: patient Onset/Context/Timing Onset: Today and Hours Activity at onset: sudden Timing: Continuous Narrative Narrative: 54-year-old female history of hypertension and diabetes. Thought she was having a panic attack. She has a history of anxiety. Around 730 tonight she had sudden onset of accelerated heart rate which she thought was a panic attack. She has been in is now about 3 and half hours. She has no known history of cardiac disease nor cardiac dysrhythmia nor SVT or PE. She really is not having any significant chest pain. Prior Similar Symptoms: Yes Recent Illness/Hospitalization: No CVD Risk Factors: Positive for Hypertension and Diabetes PE Risk Factors: Negative for Recent Travel/Surgery, Recent Immobilization, Prior DVT or PE, Cancer or OCP + Smoking + >/=35 TAD Risk Factors: Negative for Marfan's Syndrome [facility] Medical History Wears glasses History of steroid therapy Insulin dependent diabetes mellitus Fatty liver Easy bruising High cholesterol Dietary restriction Asthma Non-smoker History of pain when walking History of stress test Hypertension Lower respiratory tract infection Dysfunction of right eustachian tube Home Medications ?Medication ?Instructions ?Recorded ?Last Taken ?Type lisinopril 10 mg tablet 20 mg PO DAILY 08/04/18 Unknown History rosuvastatin 5 mg tablet 10 mg PO DAILY 08/04/18 Unknown History dapagliflozin propanediol 10 mg 10 mg PO DAILY 06/15/20 Unknown History tablet (Farxiga) insulin lispro 100 unit/mL 1 sliding scale dose subcut 10/24/23 Unknown History subcutaneous pen (Humalog KwikPen USEASDIRECTD (U-100) Insulin) loratadine 10 mg tablet 10 mg PO QDAY #7 tabs 07/07/24 Unknown Rx albuterol sulfate 90 mcg/actuation 2 puff inhalation Q4H PRN PRN 07/28/24 Unknown History aerosol inhaler shortness of breath or wheezing brimonidine 0.2 %-timolol 0.5 % 1 drp EACH EYE BID 07/28/24 Unknown History eye drops (Combigan) difluprednate 0.05 % eye drops 1 drp ophthalmic (eye) DAILY 07/28/24 Unknown History dorzolamide 2 % eye drops 1 drp ophthalmic (eye) BID 07/28/24 Unknown History insulin glargine 100 unit/mL (3 80 unit subcut QHS 07/28/24 Unknown History mL) subcutaneous pen (Lantus Solostar U-100 Insulin) metformin 1,000 mg tablet 1,000 mg PO BID 07/28/24 Unknown History multivitamin (Daily Multi-Vitamin 1 tab PO DAILY 07/28/24 Unknown History tablet) Allergy/AdvReac Type Severity Reaction Status Date / Time No Known Allergies Allergy Verified 08/04/24 22:55 Family History Father ALS (amyotrophic lateral sclerosis) Mother Breast cancer Metastatic bone cancer Surgical History Hx of tonsillectomy History of eye surgery History of tubal ligation Social History household members: children number of children: 2 current occupational status: unemployed history of recent travel: No Smoking Status: Never smoker alcohol intake: never substance use type: does not use what type of physical activity do you participate in: none seatbelt use: always do you feel safe at home: Yes additional social history: - Eloy from pancreatic cancer ROS ROS ED ROS Narrative Denies recent illness. Constitutional Constitutional ED: Denies chills or fever(s) Eyes Eyes: Reports none ENT ENT ED: Denies ear pain Cardiovascular Cardiovascular: Reports as per HPI, palpitations and racing heartbeat; Denies chest pain Respiratory/Chest Respiratory/Chest: Denies cough or dyspnea Gastrointestinal Gastrointestinal: Denies abdominal pain Genitourinary Genitourinary ED: Denies dysuria or hematuria Musculoskeletal Musculoskeletal: Denies arthralgias or back pain Integumentary Denies abscess Neurologic Neurologic: Denies headache(s) Psychiatric Psychiatric: Denies anxiety Endocrine Endocrinology: Denies cold intolerance Hematologic/Lymphatic Hematologic/Lymphatic: Denies easy bleeding, easy bruising or lymphadenopathy Allergic/Immunologic Allergic/Immunologic ED: Denies mouth swelling, tongue swelling or urticaria EXAM Physical Exam Narrative Exam Narrative: Well-appearing 54-year-old female sitting upright in bed. Initial blood pressure 170/114 with a heart rate of 210 looks like an SVT. Patient is tolerating it well. H EENT exam pupils round react light. Moist with membranes. Neck nontender. No thyromegaly. Lungs clear to auscultation bilaterally. Heart tachycardic rate about 203 no murmur. Chest wall ribs nontender. Abdomen soft nontender. Weaving all 4 extremities. Calves are nontender that edema or cords. Normal strength. Palpable radial pulse. Back nontender. Neurologically she is awake alert no focal motor deficits. Answering questions following commands. Const Vital Signs: 08/04/24 22:52 08/04/24 22:52 08/04/24 22:58 Temperature 98 F Temperature Source Temporal Pulse Rate 210 H 209 H Respiratory Rate 32 H 20 H Respiratory Effort Respiratory Pattern Blood Pressure 170/114 H Blood Pressure Mean 132 Pulse Ox 97 96 96 Oxygen Delivery Method Room Air Room Air Room Air 08/04/24 22:58 08/04/24 23:22 08/04/24 23:30 Temperature Temperature Source Pulse Rate 116 H 115 H Respiratory Rate 16 15 Respiratory Effort Labored Respiratory Pattern Tachypnea Blood Pressure 147/88 H 152/107 H Blood Pressure Mean 107 122 Pulse Ox 94 94 Oxygen Delivery Method Room Air Room Air 08/05/24 00:00 08/05/24 00:30 08/05/24 01:00 Temperature Temperature Source Pulse Rate 107 H 103 H 105 H Respiratory Rate 16 18 16 Respiratory Effort Respiratory Pattern Blood Pressure 132/92 H 145/95 H 143/93 H Blood Pressure Mean 105 111 109 Pulse Ox 95 95 95 Oxygen Delivery Method Room Air Room Air Room Air 08/05/24 01:30 Temperature Temperature Source Pulse Rate 108 H Respiratory Rate 18 Respiratory Effort Respiratory Pattern Blood Pressure 140/95 H Blood Pressure Mean 110 Pulse Ox 95 Oxygen Delivery Method Room Air Positive well nourished and well developed; Negative for cachectic, contractures or unkempt General Appearance ED: well developed and NAD; Negative for unkempt, cachectic, contractures or pallor Nutritional Appearance: Negative for cachectic HEENT Reports moist mucous membranes normocephalic and atraumatic; Negative for trauma or tenderness Eyes PERRL and EOMs intact bilaterally General Eye ED: Negative for pale conjunctiva or scleral icterus Neck no lymphadenopathy, supple and no JVD General: Negative for tenderness or other Chest Wall inspection of chest normal and palpation of chest normal Chest: Negative for tenderness Resp normal respiratory effort and clear to auscultation bilaterally Effort and Inspection: Negative for respiratory distress Auscultation: Negative for rales, rhonchi, wheezes or diminished lung sounds Cardio regular rhythm, S1 normal heart sound, S2 normal heart sound and no murmurs; Negative for regular rate Rate: tachycardic Peripheral Pulses: pulses 2+ throughout GI normal to inspection, nondistended, normoactive bowel sounds, soft to palpation, non-tender, non-distended and no masses Back/Spine no CVA tenderness and no thoracic nor lumbar tenderness Extremity normal to inspection General Extremety ED: Negative for edema or tenderness General Extremity: Negative for edema Neuro oriented x3 and CN's II-XII intact bilaterally Sensorium / Orientation: awake, alert, oriented to person, oriented to place and oriented to time; Negative for confused or lethargic Psych mental status grossly normal Appearance: Negative for unkempt Mood & Affect: anxious Skin no rashes or lesions noted and no wounds General Skin Exam: Negative for jaundice or pallor Rashes: No rashes noted Trauma: Negative for abrasion or laceration MDM MDM MDM Narrative Medical decision making narrative: 54-year-old female acute SVT with no cardiac history. She will need a cardiac workup. Initially she was given 6 Identicard which did really nothing and then 12 and now her heart rates in the 130s and appears to be a sinus tachycardia. Patient is tolerating this well and currently is doing well. Multiple repeat exams patient is doing much better heart rate was 103 when is in the room about 1:50 AM. At 2:06 AM she is resting comfortably. Given that she had initial elevated troponin 19 and 2-hour troponin came back at 23 she has a history of diabetes and hypertension and had about 3 hours or so of SVT we will admit her to the hospital for observation and further cardiac testing. I have already spoken to the hospitalist. Patient has been made aware and is comfortable with the plan. History & Record Review Discussion w/independent historian: Patient Additional record(s) reviewed:: Prior inpatient record, Prior outpatient record, Prior ED visit and Prior labs Lab Data Attestation: I reviewed the patient's lab results. Lab results narrative: CBC normal. White count of 10. H&H 14 and 43. Platelets 357. Chest x-ray no acute process. Chemistries show gap 13. BUN of 16 creatinine 0.9. Glucose 139. Initial troponin is 19 Labs: Laboratory Results - last 24 hr 08/04/24 08/05/24 23:00 01:04 WBC 10.8 RBC 5.08 Hgb 14.1 Hct 43.4 MCV 85.4 MCH 27.8 MCHC 32.5 RDW Std Deviation 42.2 RDW Coeff of Adry 13.5 Plt Count 357 MPV 10.0 Immature Gran % (Auto) 0.400 Neut % (Auto) 51.9 Lymph % (Auto) 31.7 [place] % (Auto) 11.4 H Eos % (Auto) 4.0 Baso % (Auto) 0.6 Absolute Neuts (auto) 5.6 Absolute Lymphs (auto) 3.42 Nucleated RBC % 0 Sodium 142 Potassium 4.5 Chloride 105 Carbon Dioxide 24.1 Anion Gap 13 BUN 16 Creatinine 0.99 Estim Creat Clear Calc 87.74 Est GFR (MDRD) Non-Af 68 BUN/Creatinine Ratio 16.3 Glucose 139 H Calcium 9.7 Troponin T High Sens 19 H Troponin T Hi Sens 2 Hr 23 H Radiography Chest X-Ray - ED: 1 View, Read by ED Physician, Normal, Heart, Mediastinum, Bony Structures and No Acute Disease Diagnostic Testing: Clinical Impression(s) from Imaging Studies Chest X-Ray 08/04/24 23:20 IMPRESSION: No Acute Findings. Reading [facility] Chest x-ray, portable, single view interpreted by myself shows normal cardiac silhouette. Normal mediastinum. Normal lung pereira. Rhythm Strip Rhythm Strip: SVT Rate: 209 Ectopy: None EKG Initial EKG: Attestation: I personally reviewed and interpreted this EKG as follows: Interpretation: No Acute Injury Pattern and SVT Comments: SVT at 209. Follow-up EKG: Attestation: I personally reviewed and interpreted this EKG as follows: Interpretation: No Acute Injury Pattern and Sinus Tachycardia Comments: After the 12 but then occurred the patient's EKG is no sinus tachycardia rate of 118 no acute signs of MT or ischemia. Discharge Plan Triage Chief Complaint: Chest Pain ED Provider: Rico Greene Dx/Rx/DC Orders Clinical Impression: Supraventricular tachycardia, paroxysmal, History of hypertension, History of diabetes mellitus Instructions: Supraventricular Tachycardia Prescriptions: No Action Farxiga 10 mg tablet 10 mg PO DAILY insulin lispro [Humalog KwikPen Insulin] 100 unit/mL insulin pen 1 sliding scale dose subcut USEASDIRECTD loratadine 10 mg tablet 10 mg PO QDAY Qty: 7 0RF lisinopril 10 MG tablet 20 mg PO DAILY rosuvastatin 5 MG tablet 10 mg PO DAILY insulin glargine [Lantus Solostar U-100 Insulin] 100 unit/mL (3 mL) insulin pen 80 unit subcut QHS metformin 1,000 mg tablet 1,000 mg PO BID multivitamin [Daily Multi-Vitamin] Tablet 1 tab PO DAILY brimonidine-timolol [Combigan] 0.2-0.5 % drops 1 drp EACH EYE BID difluprednate 0.05 % drops 1 drp ophthalmic (eye) DAILY Rx Instructions: RIGHT EYE dorzolamide 2 % drops 1 drp ophthalmic (eye) BID albuterol sulfate 90 mcg/actuation HFA aerosol inhaler 2 puff inhalation Q4H PRN PRN (Reason: shortness of breath or wheezing) Primary Care Provider: Daniel Castorena Referrals: Daniel Castorena MD [Primary Care Provider] - Print Language: Malaysian
[2024-08-04 23:08] LABS: Absolute Lymphocyte Count 3.42 X10^3/uL (0.83-4.51); Absolute Neutrophil Count 5.6 X10^3/uL (2.0-7.7); Basophil# 0.06 X10^3/uL; Basophil% 0.6 % (0-1); Eosinophil# 0.43 X10^3/uL; Hematocrit 43.4 % (37-47); Hemoglobin 14.1 g/dL (12.0-15.0); Lymphocyte # 3.42 X10^3/ul (0.83-4.51); Lymphocyte % 31.7 % (19-41); Mean Corp Hgb Conc 32.5 g/dL (32-36); Mean Corpuscular Hgb 27.8 pg (27.0-32.0); Mean Corpuscular Volume 85.4 fL (81-99); Monocyte# 1.23 X10^3/uL; Monocyte% 11.4 % (0-10); NRBC Flagged by Analyzer 0 % (0-5); Neutrophil % 51.9 % (47-70); Platelet Count 357 K/mm3 (150-450); RBC Distribution Width CV 13.5 % (11.6-14.6); RBC Distribution Width SD 42.2 fl (35.1-43.9); Red Blood Count 5.08 M/mm3 (4.2-5.4); White Blood Count 10.8 K/mm3 (4.4-11.0)
--- NOTE | 2024-08-04 23:20 | RAD_ITS ---
PROCEDURE: CHEST 1 VIEW (PORTABLE) 08/04/2024 REASON FOR EXAM: CHEST PAIN TECHNIQUE: Frontal view of the chest. COMPARISON: Chest radiograph dated 06/05/2022 FINDINGS: Hardware: None Heart: The heart size is normal. Lungs: The lungs are clear. Bones: The bones are unremarkable. Other: RAD/Chest 1 View (Portable) IMPRESSION: No Acute Findings. Reading Location: [facility]
[2024-08-04 23:22] VITALS: BP 147/88; PULSE 116; RESP 16; O2SAT 94
[2024-08-04 23:30] VITALS: BP 152/107; PULSE 115; RESP 15; O2SAT 94
[2024-08-04 23:38] LABS: Anion Gap 13 (5-15); BUN 16 mg/dL (4-19); BUN/Creat Ratio 16.3 RATIO (10-20); Calcium,Total 9.7 mg/dL (7.6-11.0); Carbon Dioxide 24.1 mmol/L (21.0-32.0); Chloride 105 mmol/L (98-108); Creatinine, Serum 0.99 mg/dL (0.70-1.20); EST Glomerular Filtration Rate 68 (>60); Estimated Creatinine Clearance 87.74 ml/min (50-250); Glucose 139 mg/dL (70-99); Potassium 4.5 mmol/L (3.3-5.1); Sodium Level 142 mmol/L (133-145); Troponin T High Sensitivity 19 ng/L (<=14)
[2024-08-05] VITALS (12 sets, daily range): BP systolic 132–174; BP diastolic 92–104; PULSE 95–108; RESP 15–21; TEMP 36.1–36.8; O2SAT 94–96; BMI 43.4
[2024-08-05 01:55] LABS: Troponin T High Sens 2 HR 23 ng/L (<=14)
--- NOTE | 2024-08-05 02:01 | HP.PCM.HOS_ITS ---
HPI - General General Date of Admission: 08/05/24 Date of Service: 08/05/24 Chief Complaint: Palpitations. HPI Narrative The patient is a 54 y/o F w/ PMHx: IDDM, HTN, HLD, Asthma, Morbid obesity who presents to the [facility] ED on 08/04/2024 with history of onset palpitations starting at approximately 7:30 PM with sensation of possibly onset of a panic attack however it was persistent and ongoing with no associated dyspnea or chest pain but given persistent prompted eventual ED evaluation to be cautious. She reports that her daughter was engaged approximately 2 to 3 days previously and she is attempting to improve care of herself. She does note that she snores loudly but has never been formally tested for sleep apnea. Workup in the ED included T98, initial heart rate 210, BP 170/114, respiratory rate 32, 97% on room air with most recent repeat vitals heart rate 116, BP 147/88, respiratory rate 16, 94% room air, CBC with WBC 10.8, hemoglobin 14.1, platelet 357 without marked shift, BMP with glucose 139 otherwise not marked appearing, initial troponin 19 with repeat delta 23, chest x-ray with no acute cardiopulmonary findings, EKG with SVT initially with follow-up EKG with sinus tachycardia with no acute evidence of ischemia. In the ED patient administered 6 mg IV adenosine and 12 mg adenosine IV. [facility] Medical History Wears glasses History of steroid therapy Insulin dependent diabetes mellitus Fatty liver Easy bruising High cholesterol Dietary restriction Asthma Non-smoker History of pain when walking History of stress test Hypertension Lower respiratory tract infection Dysfunction of right eustachian tube Home Medications ?Medication ?Instructions ?Recorded ?Last Taken ?Type lisinopril 10 mg tablet 20 mg PO DAILY 08/04/18 Unkn own History rosuvastatin 5 mg tablet 10 mg PO DAILY 08/04/18 Unkn own History dapagliflozin propanediol 10 mg 10 mg PO DAILY 1 Unknown History tablet (Farxiga) insulin lispro 100 unit/mL 1 sliding scale dose subcut 10/24/23 Unknown History subcutaneous pen (Humalog KwikPen USEASDIRECTD (U-100) Insulin) loratadine 10 mg tablet 10 mg PO QDAY #7 tabs Unknown Rx albuterol sulfate 90 mcg/actuation 2 puff inhalation Q 4H PRN PRN 07/28/24 Unknown History aerosol inhaler shortness of breath or wheez ing brimonidine 0.2 %-timolol 0.5 % 1 drp EACH EYE BID Unknown History eye drops (Combigan) difluprednate 0.05 % eye drops 1 drp ophthalmic (eye) DAILY 07/28/24 Unknown History dorzolamide 2 % eye drops 1 drp ophthalmic (eye) BID 0 07/28/24 Unknown History insulin glargine 100 unit/mL (3 80 unit subcut QHS Unknown History mL) subcutaneous pen (Lantus Solostar U-100 Insulin) metformin 1,000 mg tablet 1,000 mg PO BID 07/28/24 Unk nown History multivitamin (Daily Multi-Vitamin 1 tab PO DAILY 07/28 Unknown History tablet) Allergy/AdvReac Type Severity Reaction Status Date / Time No Known Allergies Allergy Verified 08/04/24 22:55 Family History Father ALS (amyotrophic lateral sclerosis) Mother Breast cancer Metastatic bone cancer Surgical History Hx of tonsillectomy History of eye surgery History of tubal ligation Social History household members: children number of children: 2 current occupational status: unemployed history of recent travel: No Smoking Status: Never smoker alcohol intake: never substance use type: does not use what type of physical activity do you participate in: none seatbelt use: always do you feel safe at home: Yes additional social history: - Eloy from pancreatic cancer ROS ROS Narrative Admission Review of Systems: CONSTITUTIONAL: No weight loss, fever, chills, + weakness or fatigue. HEENT: Eyes: No visual loss, blurred vision, double vision or yellow sclerae. Ears, Nose, Throat: No hearing loss, sneezing, congestion, runny nose or sore throat. SKIN: No rash or itching, lesions, wounds. CARDIOVASCULAR: + Palpitations/racing heart. No chest pain, chest pressure or chest discomfort, edema, orthopnea, syncopal events. RESPIRATORY: No shortness of breath, cough or sputum, wheezing, hemoptysis. GASTROINTESTINAL: No anorexia, nausea, vomiting or diarrhea, abdominal pain, melena, BRBPR. GENITOURINARY: No dysuria, frequency, urgency or retention. NEUROLOGICAL: No headache, dizziness, syncope, paralysis, ataxia, numbness or tingling in the extremities, focal weakness, change in bowel or bladder control, seizure. MUSCULOSKELETAL: + muscle, back pain, joint pain or stiffness. HEMATOLOGIC: No anemia, bleeding or bruising. LYMPHATICS: No enlarged nodes. No history of splenectomy. PSYCHIATRIC: No history of depression or anxiety. ENDOCRINOLOGIC: No reports of sweating, cold or heat intolerance. No polyuria or polydipsia. ALLERGIES: + History of asthma, allergic rhinitis. Vital Signs Vital Signs Vital Signs: 08/04/24 22:52 08/04/24 22:52 08/04/24 22:58 Temperature 98 F Temperature Source Temporal Pulse Rate 210 H 209 H Respiratory Rate 32 H 20 H Respiratory Effort Respiratory Pattern Blood Pressure 170/114 H Blood Pressure Mean 132 Pulse Ox 97 96 96 Oxygen Delivery Method Room Air Room Air Room Air 08/04/24 22:58 08/04/24 23:22 08/04/24 23:30 Temperature Temperature Source Pulse Rate 116 H 115 H Respiratory Rate 16 15 Respiratory Effort Labored Respiratory Pattern Tachypnea Blood Pressure 147/88 H 152/107 H Blood Pressure Mean 107 122 Pulse Ox 94 94 Oxygen Delivery Method Room Air Room Air 08/05/24 00:00 08/05/24 00:30 08/05/24 01:00 Temperature Temperature Source Pulse Rate 107 H 103 H 105 H Respiratory Rate 16 18 16 Respiratory Effort Respiratory Pattern Blood Pressure 132/92 H 145/95 H 143/93 H Blood Pressure Mean 105 111 109 Pulse Ox 95 95 95 Oxygen Delivery Method Room Air Room Air Room Air 08/05/24 01:30 Temperature Temperature Source Pulse Rate 108 H Respiratory Rate 18 Respiratory Effort Respiratory Pattern Blood Pressure 140/95 H Blood Pressure Mean 110 Pulse Ox 95 Oxygen Delivery Method Room Air Weight Weight: 270 lb Body Mass Index (BMI) 43.5 Physical Exam Narrative Physical Examination: General: Awake, alert, oriented x 3 and cooperative, seated upright in the ED bed, notes improved since transition to sinus rhythm. Skin: Normal color, normal turgor, no icterus, no cyanosis. HEENT: AT/NC, EOMI, PERRLA, MMM, no carotid bruits or JVD noted; however very thickened neck makes evaluation difficult. Lungs: Mildly diminished, greater bases, proper effort, no rales, ronchi or wheezing. Heart: Mildly tachycardic with regular rhythm; no gallop, rub audible. Abdomen: Soft, morbidly obese, NTTP, mildly hyperactive BS, difficult to discern distention and HSM given habitus. Extremities: No cyanosis, no clubbing, no marked peripheral edema noted. Neurological: Patient awake, alert, oriented as noted, cognitive function intact; pupils equally reactive to light and accommodation, cranial nerves grossly normal, moving all 4 extremities, no focal deficits, strength mildly globally creased, improved since initial ED arrival. Psychiatric: Affect appears fatigued otherwise normal, no acute evidence of depressive or anxiety feelings. Results Lab / Micro Data 08/04/24 23:00 08/04/24 23:00 Labs: Laboratory Results - last 24 hr 08/04/24 23:00: WBC 10.8, RBC 5.08, Hgb 14.1, Hct 43.4, MCV 85.4, MCH 27.8, MCHC 32.5, RDW Std Deviation 42.2, RDW Coeff of Adry 13.5, Plt Count 357, MPV 10.0, Immature Gran % (Auto) 0.400, Neut % (Auto) 51.9, Lymph % (Auto) 31.7, [place] % (Auto) 11.4 H, Eos % (Auto) 4.0, Baso % (Auto) 0.6, Absolute Neuts (auto) 5.6, Absolute Lymphs (auto) 3.42, Nucleated RBC % 0, Sodium 142, Potassium 4.5, Chloride 105, Carbon Dioxide 24.1, Anion Gap 13, BUN 16, Creatinine 0.99, Estim Creat Clear Calc 87.74, Est GFR (MDRD) Non-Af 68, BUN/Creatinine Ratio 16.3, G lucose 139 H, Calcium 9.7, Troponin T High Sens 19 H 08/05/24 01:04: Troponin T Hi Sens 2 Hr 23 H Rhythm Strip Rhythm Strip: SVT Rate: 209 Ectopy: None Imaging Radiology Impression Chest X-Ray 08/04/24 23:20 IMPRESSION: No Acute Findings. Reading [facility] Assessment & Plan Assessment/Plan (1) Supraventricular tachycardia, paroxysmal: PLAN: Plan The patient is a 54 y/o F w/ PMHx: IDDM, HTN, HLD, Asthma, Morbid obesity who presents to the [facility] ED on 08/04/2024 with history of onset palpitations starting at approximately 7:30 PM with sensation of possibly onset of a panic attack however it was persistent and ongoing with no associated dyspnea or chest pain but given persistent prompted eventual ED evaluation to be cautious. #1. PSVT w/ indeterminate cardiac enzymes: EKG in ED initial presentation with PSVT and status post adenosine administration x 2 sinus tachycardia with no acute evidence of ischemia, CXR w/ no acute cardiopulmonary finding, initial trop 19 with repeat delta 23. Will admit to PCU, place on a monitored bed to assure no acute myocardial infarction with serial cardiac enzymes and EKGs. Magnesium level requested. TSH requested. Metoprolol added to patient regimen. Echocardiogram requested. #2. Diabetes mellitus type II: Hold oral home regimen, continue home insulin regimen, ADA diet, accu checks w/ ISS. #3. Chronic asthma: Not on any chronic regimen per current list, will have as needed albuterol if only absolutely necessary given presentation as noted #1, encourage head of bed, I-S. #4. Hypertension: Continue home regimen including lisinopril, metoprolol added as noted, PRN hydralazine. #5. Hyperlipidemia: We will continue patient on statin therapy. #6. Allergic rhinitis: Continue patient home loratadine regimen. #7. Morbid Obesity: Weight loss and lifestyle changes encouraged. #8. DVT prophylaxis: Lovenox. #9. CODE status: Full Code status. Charges/Coding Visit Charges Inpatient E&M: 73374 Init Hosp L2
--- NOTE | 2024-08-05 03:40 | ECHOCS_ITS ---
Reason For Study Reason For Study: Arrhythmia Procedure This was a 2D Doppler, Color Flow transthoracic echocardiogram. The study was technically difficult. Contrast injection was performed. Exam performed in department. Left Ventricle Normal left ventricle. Left ventricular systolic function is normal. The left ventricular ejection fraction is 60 %. No regional wall motion abnormalities noted. Right Ventricle Normal RV size. Normal systolic function. Atria Normal left atrium. Normal right atrium. Mitral Valve There is mild mitral annular calcification. Tricuspid Valve Normal tricuspid valve. Aortic Valve The aortic valve is not well visualized. Pulmonic Valve The pulmonic valve is not well visualized. Great Vessels The aortic root is not well visualized. The pulmonary artery is normal size. Pericardium/Pleural No pericardial effusion. Medication Diluted definity 3ml given slow IV push to enhance endocardial definition. MMode/2D Measurements & Calculations LVIDd: 4.7 cm IVSd: 1.2 cm LVOT diam: 2.1 cm LVIDs: 3.1 cm LVPWd: 1.0 cm RVDd: 3.4 cm FS: 33.9 % LVOT area: 3.6 cm2 LAV(MOD-bp): 50.8 ml LVAd ap4: 33.9 cm2 SV(MOD-sp4): 76.6 ml LAV(MOD-bp) Indexed: 22.4 ml/m2 LVLd ap4: 8.3 cm SI(MOD-sp4): 33.8 ml/m2 LAV(MOD-sp2): 55.4 ml EDV(MOD-sp4): 116.2 ml LAV(MOD-sp4): 43.9 ml EDV(sp4-el): 118.3 ml LVAs ap4: 18.1 cm2 LVLs ap4: 7.3 cm ESV(MOD-sp4): 39.6 ml ESV(sp4-el): 38.2 ml EF(MOD-sp4): 65.9 % EF(sp4-el): 67.7 % SV(sp4-el): 80.1 ml LA A4 area: 17.2 cm2 LA dimension(2D): 3.7 cm RA A4 area: 12.3 cm2 TAPSE: 2.1 cm Time Measurements MV dec time: 0.16 sec Doppler Measurements & Calculations MV E max ashutosh: 99.7 cm/sec Lat Peak E' Ashutosh: 9.0 cm/sec Med Peak E' Ashutosh: 9.3 cm/sec MV A max ashutosh: 118.3 cm/sec E/E' lat: 11.0 E/E' med: 10.8 MV E/A: 0.84 MV V2 max: 149.5 cm/sec MV P1/2t max ashutosh: 105.8 cm/sec Ao V2 max: 212.6 cm/sec MV max P.9 mmHg MV P1/2t: 52.1 msec Ao max P.1 mmHg MV V2 mean: 81.7 cm/sec MV dec slope: 595.0 cm/sec2 Ao V2 mean: 143.5 cm/sec MV mean P.2 mmHg MVA(P1/2t): 4.2 cm2 Ao mean P.4 mmHg MV V2 VTI: 25.1 cm Ao V2 VTI: 39.3 cm MVA(VTI): 3.9 cm2 AV (velocity ratio): 0.70 MEGAN(I,D): 2.5 cm2 MEGAN(V,D): 2.3 cm2 LV V1 max: 135.3 cm/sec SV(LVOT): 98.2 ml PA V2 max: 122.6 cm/sec LV V1 max P.4 mmHg LV V1 mean P.3 mmHg LV V1 mean: 82.1 cm/sec LV V1 VTI: 27.4 cm ECHO/Echo Complete W/ Contrast Interpretation Summary Normal left ventricle. Left ventricular systolic function is normal. The left ventricular ejection fraction is 60 %. Contrast injection was performed. The study was technically difficult. Ordering Physician: Madonna Mcmahon Performed By: Kevin Gonsales RCS
[2024-08-05] MEDS: Metoprolol Tartrate 25 MG Tablet 12.5 MG PO ×2 (04:03→11:20)
[2024-08-05 05:30] LABS: Absolute Lymphocyte Count 3.11 X10^3/uL (0.83-4.51); Absolute Neutrophil Count 4.4 X10^3/uL (2.0-7.7); Basophil# 0.05 X10^3/uL; Basophil% 0.6 % (0-1); Eosinophil# 0.37 X10^3/uL; Eosinophils% 4.2 % (0-5); Hematocrit 39.5 % (37-47); Hemoglobin 12.9 g/dL (12.0-15.0); Lymphocyte # 3.11 X10^3/ul (0.83-4.51); Lymphocyte % 35.3 % (19-41); Mean Corp Hgb Conc 32.7 g/dL (32-36); Mean Corpuscular Hgb 27.8 pg (27.0-32.0); Mean Corpuscular Volume 85.1 fL (81-99); Mean Platelet Vol. 10.1 fl (6.2-12.0); Monocyte# 0.88 X10^3/uL; NRBC Flagged by Analyzer 0 % (0-5); Neutrophil # 4.37 X10^3/uL (2.7-7.7); Neutrophil % 49.6 % (47-70); Platelet Count 308 K/mm3 (150-450); RBC Distribution Width CV 13.7 % (11.6-14.6); RBC Distribution Width SD 42.4 fl (35.1-43.9); Red Blood Count 4.64 M/mm3 (4.2-5.4); White Blood Count 8.8 K/mm3 (4.4-11.0)
[2024-08-05 05:47] LABS: Troponin T High Sensitivity 21 ng/L (<=14)
[2024-08-05 05:55] LABS: ALB/GLOB Ratio 1.8 RATIO (0.9-2.4); AST(SGOT) 18 U/L (<=31); Alanine Aminotransfer ALT/SGPT 23 U/L (<=34); Albumin, Serum 3.9 g/dL (3.5-5.0); Alkaline Phosphatase 63 U/L (35-104); Anion Gap 12 (5-15); BUN 14 mg/dL (4-19); BUN/Creat Ratio 16.4 RATIO (10-20); Calcium,Total 9.4 mg/dL (7.6-11.0); Carbon Dioxide 22.8 mmol/L (21.0-32.0); Chloride 106 mmol/L (98-108); Creatinine, Serum 0.84 mg/dL (0.70-1.20); EST Glomerular Filtration Rate 83 (>60); Estimated Creatinine Clearance 103.22 ml/min (50-250); Globulin 2.2 g/dL (2.2-4.2); Glucose 110 mg/dL (70-99); Potassium 4.6 mmol/L (3.3-5.1); Protein, Total 6.1 g/dL (5.9-8.4); Sodium Level 141 mmol/L (133-145); Total Bilirubin 0.79 mg/dL (0.00-1.30)
--- NOTE | 2024-08-05 08:22 | PN.HOSP_ITS ---
Reason for Visit Reason for Visit: Diagnoses Supraventricular tachycardia, unspecified (08/05/24) Subjective Subjective Patient is a 54-year-old lady who presented to the emergency department with chest pain and palpitation. Was found to be in PSVT aborted with adenosine admitted to a monitored bed for subsequent management Objective Data Objective Data Vital Signs: Vital Signs Temp Pulse Resp BP Pulse Ox O2 Del Method 98.2 F 106 H 16 152/100 H 95 Room Air 08/05/24 02:00 08/05/24 04:03 08/05/24 03:00 08/05/24 04:03 08/05/24 04:43 08/05/24 04:43 Oxygen Delivery Method Room Air Weight: 122.1 kg Body Mass Index (BMI) 43.4 Intake & Output: Intake and Output for Last 24 Hours 08/03/24 08/04/24 08/05/24 23:59 23:59 23:59 Intake Total 100 / 100 Output Total 0 / 0 Balance 100 / 100 Lab / Micro Data 08/05/24 05:15 08/05/24 05:15 Labs: Laboratory Results - last 24 hr 08/04/24 23:00: WBC 10.8, RBC 5.08, Hgb 14.1, Hct 43.4, MCV 85.4, MCH 27.8, MCHC 32.5, RDW Std Deviation 42.2, RDW Coeff of Adry 13.5, Plt Count 357, MPV 10.0, Immature Gran % (Auto) 0.400, Neut % (Auto) 51.9, Lymph % (Auto) 31.7, [place] % (Auto) 11.4 H, Eos % (Auto) 4.0, Baso % (Auto) 0.6, Absolute Neuts (auto) 5.6, Absolute Lymphs (auto) 3.42, Nucleated RBC % 0, Sodium 142, Potassium 4.5, Chloride 105, Carbon Dioxide 24.1, Anion Gap 13, BUN 16, Creatinine 0.99, Estim Creat Clear Calc 87.74, Est GFR (MDRD) Non-Af 68, BUN/Creatinine Ratio 16.3, G lucose 139 H, Calcium 9.7, Troponin T High Sens 19 H 08/05/24 01:04: Magnesium 2.0, Troponin T Hi Sens 2 Hr 23 H 08/05/24 05:15: WBC 8.8, RBC 4.64, Hgb 12.9, Hct 39.5, MCV 85.1, MCH 27.8, MCHC 32.7, RDW Std Deviation 42.4, RDW Coeff of Adry 13.7, Plt Count 308, MPV 10.1, Immature Gran % (Auto) 0.300, Neut % (Auto) 49.6, Lymph % (Auto) 35.3, [place] % (Auto) 10.0, Eos % (Auto) 4.2, Baso % (Auto) 0.6, Absolute Neuts (auto) 4.4, Absolute Lymphs (auto) 3.11, Nucleated RBC % 0, Sodium 141, Potassium 4.6, Chloride 106, Carbon Dioxide 22.8, Anion Gap 12, BUN 14, Creatinine 0.84, Estim Creat Clear Calc 103.22, Est GFR (MDRD) Non-Af 83, BUN/Creatinine Ratio 16.4, G lucose 110 H, Calcium 9.4, Total Bilirubin 0.79, AST 18, ALT 23, Alkaline Phosphatase 63, Troponin T High Sens 21 H D, Total Protein 6.1, Albumin 3.9, Globulin 2.2, Albumin/Globulin Ratio 1.8, TSH 2.600 Radiography Diagnostic Testing: Radiology Impression Chest X-Ray 08/04/24 23:20 IMPRESSION: No Acute Findings. [facility] Rhythm Strip Rhythm Strip: SVT Rate: 209 Ectopy: None Physical Exam Narrative GENERAL: cooperative HEENT: Atraumatic; normocephalic EYES; Anicteric, Normal Conjunctiva NECK; supple, normal thyroid, RESPIRATORY: Diminished to auscultation CARDIOVASCULAR: Regular S1 S2, GI: soft, normoactive bowel sounds, : No Renal angle tenderness; EXTREMITIES: No edema, no clubbing, MUSCULOSKELETAL: no muscle wasting NEURO: Awake; no lateralizing signs. SKIN: No Rash PSYCH; Flat affect Assessment & Plan Assessment/Plan (1) Supraventricular tachycardia, paroxysmal: PLAN: Plan Patient is a 54-year-old lady who presented to the emergency department with chest pain and palpitation. Was found to be in PSVT aborted with adenosine admitted to a monitored bed for subsequent management 1. PSVT ? Patient did receive adenosine in the ED converted back to sinus rhythm admitted subsequently to telemetry for continuous monitoring as part of her management serial cardiac enzymes and EKG ordered 2. Chest pain ? Patient had indeterminate troponin. A nuclear stress test ordered to complete her evaluation 3. Hypertension ? Blood pressure controlled, home medications continued with dose adjustment as needed 4. Class III obesity with BMI of 43.3 ? Complicating care weight loss advised 5. Mild intermittent asthma ? Currently not in exacerbation aerosol treatment as needed 6. Dyslipidemia ?Patient is on statin therapy, continued at home dose 7. Allergic rhinitis ? Patient is on loratadine and fluticasone as needed 8. DVT prophylaxis ? On enoxaparin Time spent in the patient's overall evaluation,decision-making process, review of diagnostic data, adjustment of management, discussion with other providers, nursing nursing and ancillary staff involved in patient's care documentation, 36 Minutes
--- NOTE | 2024-08-05 08:46 | NURSING ---
Pt off floor to stress test
[2024-08-05] MEDS: Lisinopril 20 MG Tablet PO (11:20)
--- NOTE | 2024-08-05 14:49 | DS.PCM_ITS ---
Providers Date of Admission: 08/05/24 Date of Discharge: 08/05/24 Primary Care Physician: Dr. Daniel Castorena MD Reason For Visit: PSVT Diagnosis Discharge Diagnosis (1) Supraventricular tachycardia, paroxysmal: Status: Acute Code(s): I47.10 - Supraventricular tachycardia, unspecified Plan Patient is a 54-year-old lady who presented to the emergency department with chest pain and palpitation. Was found to be in PSVT aborted with adenosine admitted to a monitored bed for subsequent management 1. PSVT ? Patient did receive adenosine in the ED converted back to sinus rhythm admitted subsequently to telemetry for continuous monitoring as part of her management serial cardiac enzymes and EKG ordered ? Patient had no recurrence of the PSVT after being placed on metoprolol 12.5 mg p.o. twice daily prescription was written on discharge. 2D echo obtained did show Normal left ventricle. Left ventricular systolic function is normal. The left ventricular ejection fraction is 60 %. Patient was discharged home with a 30-day event monitor with plans for patient to follow-up with primary care physician for subsequent 2. Chest pain ? Patient had indeterminate troponin. A nuclear stress test ordered to complete her evaluation ? Patient underwent nuclear stress test which was negative for stress-induced ischemia 3. Hypertension ? Blood pressure controlled, home medications continued with dose adjustment as needed 4. Class III obesity with BMI of 43.3 ? Complicating care weight loss advised 5. Mild intermittent asthma ? Currently not in exacerbation aerosol treatment as needed 6. Dyslipidemia ?Patient is on statin therapy, continued at home dose 7. Allergic rhinitis ? Patient is on loratadine and fluticasone as needed 8. DVT prophylaxis ? On enoxaparin Time spent in the patient's overall evaluation,decision-making process, review of diagnostic data, adjustment of management, discussion with other providers, nursing nursing and ancillary staff involved in patient's care documentation, 36 Minutes Medications at Discharge Home Medications dapagliflozin propanediol 10 mg tablet (Farxiga) 10 mg PO DAILY 06/15/20 insulin lispro 100 unit/mL subcutaneous pen (Humalog KwikPen (U-100) Insulin) 1 sliding scale dose subcut USEASDIRECTD 10/24/23 loratadine 10 mg tablet 10 mg PO QDAY #7 tabs 07/07/24 albuterol sulfate 90 mcg/actuation aerosol inhaler 2 puff inhalation Q4H PRN PRN shortness of breath or wheezing 07/28/24 brimonidine 0.2 %-timolol 0.5 % eye drops (Combigan) 1 drp EACH EYE BID 07/28/24 difluprednate 0.05 % eye drops 1 drp ophthalmic (eye) DAILY 07/28/24 dorzolamide 2 % eye drops 1 drp ophthalmic (eye) BID 07/28/24 insulin glargine 100 unit/mL (3 mL) subcutaneous pen (Lantus Solostar U-100 Insulin) 80 unit subcut QHS 07/28/24 metformin 1,000 mg tablet 1,000 mg PO BID 07/28/24 multivitamin (Daily Multi-Vitamin tablet) 1 tab PO DAILY 07/28/24 fluticasone propionate 50 mcg/actuation nasal spray,suspension 1 spray intranasal DAILY 08/05/24 lisinopril 20 mg tablet 20 mg PO DAILY 08/05/24 metoprolol tartrate 25 mg tablet 12.5 mg (1/2 x 25 mg) PO BID 60 days #60 tabs 08/05/24 rosuvastatin 10 mg tablet 10 mg PO DAILY 08/05/24 Physical Exam Narrative GENERAL: cooperative HEENT: Atraumatic; normocephalic EYES; Anicteric, Normal Conjunctiva NECK; supple, normal thyroid, RESPIRATORY: Diminished to auscultation CARDIOVASCULAR: Regular S1 S2, GI: soft, normoactive bowel sounds, : No Renal angle tenderness; EXTREMITIES: No edema, no clubbing, MUSCULOSKELETAL: no muscle wasting NEURO: Awake; no lateralizing signs. SKIN: No Rash PSYCH; Flat affect Weight / BMI Weight Weight: 122.1 kg Body Mass Index (BMI) 43.4 ABG / Lab / Microbiology Data 08/05/24 05:15 08/05/24 05:15 Laboratory: Laboratory Results - last 24 hr 08/04/24 23:00: WBC 10.8, RBC 5.08, Hgb 14.1, Hct 43.4, MCV 85.4, MCH 27.8, MCHC 32.5, RDW Std Deviation 42.2, RDW Coeff of Adry 13.5, Plt Count 357, MPV 10.0, Immature Gran % (Auto) 0.400, Neut % (Auto) 51.9, Lymph % (Auto) 31.7, [place] % (Auto) 11.4 H, Eos % (Auto) 4.0, Baso % (Auto) 0.6, Absolute Neuts (auto) 5.6, Absolute Lymphs (auto) 3.42, Nucleated RBC % 0, Sodium 142, Potassium 4.5, Chloride 105, Carbon Dioxide 24.1, Anion Gap 13, BUN 16, Creatinine 0.99, Estim Creat Clear Calc 87.74, Est GFR (MDRD) Non-Af 68, BUN/Creatinine Ratio 16.3, G lucose 139 H, Calcium 9.7, Troponin T High Sens 19 H 08/05/24 01:04: Magnesium 2.0, Troponin T Hi Sens 2 Hr 23 H 08/05/24 05:15: WBC 8.8, RBC 4.64, Hgb 12.9, Hct 39.5, MCV 85.1, MCH 27.8, MCHC 32.7, RDW Std Deviation 42.4, RDW Coeff of Adry 13.7, Plt Count 308, MPV 10.1, Immature Gran % (Auto) 0.300, Neut % (Auto) 49.6, Lymph % (Auto) 35.3, [place] % (Auto) 10.0, Eos % (Auto) 4.2, Baso % (Auto) 0.6, Absolute Neuts (auto) 4.4, Absolute Lymphs (auto) 3.11, Nucleated RBC % 0, Sodium 141, Potassium 4.6, Chloride 106, Carbon Dioxide 22.8, Anion Gap 12, BUN 14, Creatinine 0.84, Estim Creat Clear Calc 103.22, Est GFR (MDRD) Non-Af 83, BUN/Creatinine Ratio 16.4, G lucose 110 H, Calcium 9.4, Total Bilirubin 0.79, AST 18, ALT 23, Alkaline Phosphatase 63, Troponin T High Sens 21 H D, Total Protein 6.1, Albumin 3.9, Globulin 2.2, Albumin/Globulin Ratio 1.8, TSH 2.600 Radiography Diagnostic Testing: Radiology Impression Chest X-Ray 08/04/24 23:20 IMPRESSION: No Acute Findings. Reading Location: [facility] Echocardiogram 08/05/24 03:40 Interpretation Summary Normal left ventricle. Left ventricular systolic function is normal. The left ventricular ejection fraction is 60 %. Contrast injection was performed. The study was technically difficult. Ordering Physician: Madonna Mcmahon Performed By: Kevin Gonsales RCS D/C Instructions Discharge Diet: Low fat / Low cholesterol and 1800 Calorie Control Diet Discharge Activity: Return to Normal Activity Call your doctor if you observe: Fever of 101 or Higher, Shortness of breath, Fainting spells and Chest pain DC O2, CPAP, BIPAP Needs Home O2 Discharge instructions: No Meaningful Use Info Meaningful Use Meaningful Use Diagnoses (Choose all that apply): None applicable Ischemic Stroke Statin Dosing Therapy Reference: STATIN DOSE THERAPY REFERENCE: * Patients > 75 years receive moderate or high dose statin therapy. * Patients 75 years or YOUNGER should receive HIGH intensity statin dose unless contraindicated. You will be required to document reason for non-treatment if statin daily dose does not meet guidelines. HIGH DOSE STATIN THERAPY DAILY Atorvastatin > than or = to 40 mg Rosuvastatin > than or = to 20 mg Amlodipine + Atorvastatin > than or = to 2.5/40 mg Ezetimibe + Simvastatin 10/80 mg Simvastatin 80mg Discharge Plan Admission Admit Date/Time: 08/05/24 02:02 Attending Provider: Joseph Armstrong Primary Care Provider: Daniel Castorena Consulting Providers: Madonna Mcmahon Instructions Patient Instructions: Supraventricular Tachycardia Discharge Orders/Prescriptions Prescriptions: New metoprolol tartrate 25 mg Tablet 12.5 mg PO BID 60 Days Qty: 60 0RF Continued Farxiga 10 mg tablet 10 mg PO DAILY insulin lispro [Humalog KwikPen Insulin] 100 unit/mL insulin pen 1 sliding scale dose subcut USEASDIRECTD loratadine 10 mg tablet 10 mg PO QDAY Qty: 7 0RF insulin glargine [Lantus Solostar U-100 Insulin] 100 unit/mL (3 mL) insulin pen 80 unit subcut QHS metformin 1,000 mg tablet 1,000 mg PO BID multivitamin [Daily Multi-Vitamin] Tablet 1 tab PO DAILY brimonidine-timolol [Combigan] 0.2-0.5 % drops 1 drp EACH EYE BID difluprednate 0.05 % drops 1 drp ophthalmic (eye) DAILY Rx Instructions: RIGHT EYE dorzolamide 2 % drops 1 drp ophthalmic (eye) BID albuterol sulfate 90 mcg/actuation HFA aerosol inhaler 2 puff inhalation Q4H PRN PRN (Reason: shortness of breath or wheezing) lisinopril 20 mg tablet 20 mg PO DAILY rosuvastatin 10 mg tablet 10 mg PO DAILY fluticasone propionate 50 mcg/actuation spray,suspension 1 spray INTRANASAL DAILY Other Ambulatory Orders: 30 Day Event Recorder Preventi (Urgent) Timeframe: 1 Day Facility: [facility] - Location: Cardiovascular Services Ordered By: Dr. Joseph Armstrong Referrals / Follow Up: Daniel Castorena MD [Primary Care Provider] - Within 1 Week Disposition Disposition (needs filled in before D/C Order can be placed): Home, Self Care Charges/Coding Visit Charges Inpatient E&M: 07230 Disch Hosp >30min
--- NOTE | 2024-08-05 15:58 | CASEMGMT ---
RN CHARLES NOTE: Discharge order is in. RN CM to room. Pt sitting on edge of bed. Introduced self and role. Pt made aware Rx has been sent to [facility] and she states is able to pick that up today. She was also made aware 30-day even monitor order has been placed. Questions answered. Pt denies having any further dc needs, questions, or concerns. Gonzalez PUGAN RN CM
--- NOTE | 2024-08-05 17:06 | STRESSREP ---
Stress Test Report Pharmacologic myocardial perfusion stress test. 54-year-old lady with a history of chest pain Resting EKG demonstrates sinus tachycardia with a rate of 100 bpm. Resting blood pressure is 152/88 mmHg. 0.4 mg of regadenoson was infused per usual protocol followed by rapid intravenous saline flush injection. Continuous EKG monitoring was performed. The maximum heart rate was 134 bpm which was 80 of max impacted heart rate the maximum workload was 1 metabolic equivalent. At rest there were no ST or T wave changes noted to suggest ischemia and at peak infusion nonspecific ST changes were noted which did not meet the criteria for ischemia. No clinical angina is noted. The final blood pressure was 140/82 mmHg. Myocardial perfusion protocol. 14.6 mCi of technetium 99m sestamibi was injected at rest. 0.4 mg of regadenoson was infused per usual protocol. At peak infusion 45 mCi of technetium 99m sestamibi was injected stress images were obtained stress and rest images were reconstructed and compared in the short axis vertical long and horizontal long axis. Gated images were also obtained. Perfusion SPECT analysis: Review of the stress images demonstrate normal uptake of tracer noted in all areas of the myocardium. The resting images similar demonstrated normal uptake of tracer noted in all areas of the myocardium. No areas of reversibility are noted to suggest ischemia and no previous infarct is noted. Gated SPECT analysis: The gated ejection fraction is 69%. Conclusion: Normal pharmacologic myocardial perfusion stress test. Preserved ejection fraction.
[2024-08-06 16:18] LABS: Bedside Glucose 106 mg/dL (74-106)
== END 2024-08-05 14:48 | disposition home or self-care (01) ==
LOC: ED 23:16 → PCU 08-05 03:10
PROVIDERS: Admitting Provider Family Medicine; Emergency Provider Emergency Medicine; PCP Family Medicine; Visit Provider Internal Medicine
DX: I47.10 Supraventricular tachycardia, unspecified (principal); E66.01 Morbid (severe) obesity due to excess calories; Z68.41 Body mass index [BMI] 40.0-44.9, adult; E11.9 Type 2 diabetes mellitus without complications; Z79.4 Long term (current) use of insulin; Z79.84 Long term (current) use of oral hypoglycemic drugs; I10 Essential (primary) hypertension; F41.9 Anxiety disorder, unspecified; Z98.51 Tubal ligation status; E78.5 Hyperlipidemia, unspecified; J45.20 Mild intermittent asthma, uncomplicated; R07.9 Chest pain, unspecified
CPT/HCPCS: 71045; 78452; 80048; 80053; 82962; 83735; 84443; 84484; 85025; 93005; 93017; 93306; 96374; 99221; 99285; A9500; Q9957; A4216; C8929; G0378; J0153; J2785

== ENCOUNTER 2024-09-04 02:23 | Emergency (ER) | payer MEDICAID, SELFPAY ==
[2024-09-04 02:24] VITALS: BP 168/106; PULSE 95; RESP 18; TEMP 36.9; O2SAT 94; BMI 43.1
--- NOTE | 2024-09-04 02:47 | CT_ITS ---
PROCEDURE: ABDOMEN/PELVIS W IV CONT ONLY 09/04/2024 REASON FOR EXAM: ABDOMINAL PAIN TECHNIQUE: Abdomen and pelvis CT with intravenous contrast. Coronal and Sagittal reconstruction series were provided. PATIENT PREPARATION: Per protocol ORAL CONTRAST TYPE: None. CONTRAST: 87 cc Isovue 370 IV One or more dose reduction techniques were used (e.g., Automated exposure control, adjustment of the mA and/or kV according to patient size, use of iterative reconstruction technique. RADIATION DOSE SUMMARY: CTDlvol: 24.18 mGy DLP: 1326.70 mGycm COMPARISON: 11/14/2018 FINDINGS: The lung bases are clear. Small amount of anterior pericardial fluid for example axial 19. The liver, gallbladder, adrenal glands, kidneys, pancreas and spleen appear within limits. The abdominal aorta appears within limits. No adenopathy. No bowel dilation or free air. Normal caliber appendix without secondary signs. The ovaries/adnexa, uterus and bladder appear within limits. No free fluid. Right-sided greater than left subcutaneous soft tissue thickening, stranding just beneath the skin surface lower ventral abdominal wall for example axial 106 is more prominent than the prior study etiology of which is unclear, clinically correlate. The visualized osseous structures appear within limits. CT/Abdomen/Pelvis W IV Cont ONLY IMPRESSION: No evidence of acute intra-abdominal process as above. Small amount of anterior pericardial fluid for example axial 19. Right-sided greater than left subcutaneous soft tissue thickening, stranding ju st beneath the skin surface lower ventral abdominal wall for example axial 106 is more prominent than the prior study michele ology of which is unclear, clinically correlate. Reading Location: [id number]
--- NOTE | 2024-09-04 02:48 | EKG12_ITS ---
Test Reason : DYSRHYTHMIA Blood Pressure : */* mmHG Vent. Rate : 85 BPM Atrial Rate : 85 BPM P-R Int : 140 ms QRS Dur : 88 ms QT Int : 372 ms P-R-T Axes : 57 82 35 degrees QTcB Int : 442 ms Normal sinus rhythm Normal ECG Confirmed by ERASMO STEIN, EARNESTINE ([id number]), editor trade journal [employer]FT[employer] SINGER ([id number]) on 09/04/2024 8:22:13 AM Referred By: Confirmed By: EARNESTINE ZIMMERMAN MD
--- NOTE | 2024-09-04 02:48 | ED.VIS.GI ---
HPI HPI - GI History of Present Illness Chief Complaint: Abd Pain Detail of Chief Complaint: Abdominal pain Informant: patient Narrative Narrative: Patient presents with abdominal pain that started 24 hours ago. She describes pain in the center of her abdomen she feels bloated. She had 2 episodes of diarrhea yesterday. She has had nausea but no vomiting. Denies urinary symptoms. Patient states that when she lays flat feels like her heart is racing and at times skipping beats. She is concerned because about a month ago she had episode of SVT that required adenosine. She is currently on metoprolol. She denies chest pain. Denies recent antibiotic usage. Denies recent travel. She has had a tubal ligation but no other abdominal surgeries. [facility] Medical History Wears glasses History of steroid therapy Insulin dependent diabetes mellitus Fatty liver Easy bruising High cholesterol Dietary restriction Asthma Non-smoker History of pain when walking History of stress test Hypertension Lower respiratory tract infection Dysfunction of right eustachian tube Home Medications ?Medication ?Instructions ?Recorded ?Last Taken ?Type dapagliflozin propanediol 10 mg 10 mg PO DAILY 06/15/20 Unknown History tablet (Farxiga) insulin lispro 100 unit/mL 1 sliding scale dose subcut 10/24/23 Unknown History subcutaneous pen (Humalog KwikPen USEASDIRECTD (U-100) Insulin) loratadine 10 mg tablet 10 mg PO QDAY #7 tabs 07/07/24 Unknown Rx albuterol sulfate 90 mcg/actuation 2 puff inhalation Q4H PRN PRN 07/28/24 Unknown History aerosol inhaler shortness of breath or wheezing brimonidine 0.2 %-timolol 0.5 % 1 drp EACH EYE BID 07/28/24 Unknown History eye drops (Combigan) difluprednate 0.05 % eye drops 1 drp ophthalmic (eye) DAILY 07/28/24 Unknown History dorzolamide 2 % eye drops 1 drp ophthalmic (eye) BID 07/28/24 Unknown History insulin glargine 100 unit/mL (3 80 unit subcut QHS 07/28/24 Unknown History mL) subcutaneous pen (Lantus Solostar U-100 Insulin) metformin 1,000 mg tablet 1,000 mg PO BID 07/28/24 Unknown History multivitamin (Daily Multi-Vitamin 1 tab PO DAILY 07/28/24 Unknown History tablet) lisinopril 20 mg tablet 20 mg PO DAILY 08/05/24 Unknown History metoprolol tartrate 25 mg tablet 12.5 mg (1/2 x 25 mg) PO BID 60 08/05/24 Unknown Rx days #60 tabs rosuvastatin 10 mg tablet 10 mg PO DAILY 08/05/24 Unknown History lansoprazole 30 mg capsule,delayed 30 mg PO DAILY #14 caps 09/04/24 Unknown Rx release (Prevacid) Allergy/AdvReac Type Severity Reaction Status Date / Time No Known Allergies Allergy Verified 09/04/24 02:30 Family History Father ALS (amyotrophic lateral sclerosis) Mother Breast cancer Metastatic bone cancer Surgical History Hx of tonsillectomy History of eye surgery History of tubal ligation Social History household members: children number of children: 2 current occupational status: unemployed history of recent travel: No Smoking Status: Never smoker alcohol intake: never substance use type: does not use what type of physical activity do you participate in: none seatbelt use: always do you feel safe at home: Yes additional social history: - Eloy from pancreatic cancer ROS ROS ED Review of Systems ROS Unobtainable: other Constitutional Constitutional ED: Reports lethargy; Denies chills, fever(s), sweats or weight loss Eyes Eyes: Denies blurry vision, change in vision or diplopia ENT ENT ED: Denies rhinorrhea or sore throat Cardiovascular Cardiovascular: Reports racing heartbeat; Denies chest pain or orthopnea Respiratory/Chest Respiratory/Chest: Denies cough, dyspnea, dyspnea on exertion, orthopnea or sputum Gastrointestinal Gastrointestinal: Reports abdominal pain, diarrhea and nausea; Denies vomiting Genitourinary Genitourinary ED: Denies dysuria, hematuria or urinary frequency Musculoskeletal Musculoskeletal: Denies arthralgias, back pain, myalgias or neck pain Integumentary Denies abscess, Abrasions or rash Neurologic Neurologic: Denies headache(s) or weakness Psychiatric Psychiatric: Denies anxiety, depression or suicidal thoughts Endocrine Endocrinology: Denies polydipsia, polyphagia or polyuria Hematologic/Lymphatic Hematologic/Lymphatic: Denies easy bleeding, easy bruising or lymphadenopathy Allergic/Immunologic Allergic/Immunologic ED: Denies mouth swelling, tongue swelling or urticaria EXAM Physical Exam Const Vital Signs: 09/04/24 02:24 09/04/24 04:00 Temperature 98.4 F Temperature Source Oral Pulse Rate 95 85 Respiratory Rate 18 16 Blood Pressure 168/106 H 120/81 H Blood Pressure Mean 126 94 Pulse Ox 94 98 Oxygen Delivery Method Room Air Room Air Positive well nourished and well developed General Appearance ED: well developed and NAD HEENT Reports TM's clear and moist mucous membranes normocephalic and atraumatic; Negative for trauma or tenderness Tympanic Membrane ED: Yes TM's clear Eyes PERRL and EOMs intact bilaterally General Eye ED: Negative for pale conjunctiva or scleral icterus Neck no lymphadenopathy, supple and no JVD General: Negative for tenderness Chest Wall inspection of chest normal and palpation of chest normal Chest: Negative for tenderness Resp normal respiratory effort and clear to auscultation bilaterally Effort and Inspection: Negative for respiratory distress or pain with movement Auscultation: Negative for rhonchi, wheezes or diminished lung sounds Cardio regular rate, regular rhythm, S1 normal heart sound, S2 normal heart sound and no murmurs Peripheral Pulses: pulses 2+ throughout GI normal to inspection, nondistended, normoactive bowel sounds, soft to palpation, non-distended and no masses GI Narrative: Diffuse tenderness to palpation. There is mild guarding. There is no rebound, rigidity, or peritoneal signs. No mass palpated. Back/Spine no CVA tenderness and no thoracic nor lumbar tenderness Extremity normal to inspection General Extremety ED: Negative for edema General Extremity: Negative for edema Neuro oriented x3, CN's II-XII intact bilaterally, no sensory deficits noted and gait normal Sensorium / Orientation: awake, alert, oriented to person, oriented to place and oriented to time Motor Exam: strength 5/5 throughout and strength abnormal Psych mental status grossly normal Skin no rashes or lesions noted and no wounds MDM MDM MDM Narrative Medical decision making narrative: Patient presents with abdominal pain x 24 hours. She describes bloating. She has a burning sensation into her chest at times. She is concerned because she fell like her heart was racing when she laid flat and had recent bout of SVT. Clinically looks well. Abdomen is diffusely tender on exam. IV line established. CBC with differential obtained showing of 8.3 with hemoglobin 13.9 and platelet count of 322. Chemistries unremarkable. LFTs were normal. Lipase normal at 32. Troponin was normal at 8. Urinalysis unremarkable. EKG obtained on arrival showed a sinus rhythm with ventricular rate of 85 bpm with no acute ST segment changes. CT scan of the abdomen pelvis with IV contrast read by radiology as no acute intra-abdominal process. She had some thickening of the skin right lower abdomen however this is where patient would give herself insulin. There is no evidence of cellulitis on clinical exam. Patient also had small amount of anterior pericardial fluid. Patient received a GI cocktail as initially she did not want anything for pain or for nausea. The GI cocktail almost completely resolved her pain. At this point I suspect likely gastritis. Cannot rule out peptic ulcer disease although she has had no blood in her stool or black tarry stools or vomiting blood. Will start patient on Prevacid and refer to GI for follow-up. Patient advised to return if worsening pain, vomiting blood, black tarry stool, or condition should worsen anyway Lab Data Attestation: I reviewed the patient's lab results. Labs: Laboratory Results - last 24 hr 09/04/24 09/04/24 02:30 02:58 WBC 8.3 RBC 4.99 Hgb 13.9 Hct 42.2 MCV 84.6 MCH 27.9 MCHC 32.9 RDW Std Deviation 40.7 RDW Coeff of Adry 13.3 Plt Count 322 MPV 9.9 Immature Gran % (Auto) 0.500 Neut % (Auto) 56.0 Lymph % (Auto) 31.4 [place] % (Auto) 9.3 Eos % (Auto) 2.3 Baso % (Auto) 0.5 Absolute Neuts (auto) 4.7 Absolute Lymphs (auto) 2.61 Nucleated RBC % 0 Sodium 139 Potassium 4.1 Chloride 103 Carbon Dioxide 22.0 Anion Gap 14 BUN 14 Creatinine 0.85 Estim Creat Clear Calc 101.57 Est GFR (MDRD) Non-Af 82 BUN/Creatinine Ratio 16.2 Glucose 141 H Calcium 9.5 Total Bilirubin 0.94 AST 23 ALT 20 Alkaline Phosphatase 64 Troponin T High Sens 8 D Total Protein 7.1 Albumin 4.2 Globulin 2.9 Albumin/Globulin Ratio 1.4 Lipase 32 Urine Color Yellow Urine Clarity Clear Urine pH 5.0 Ur Specific [place] 1.020 Urine Protein 15 H Urine Glucose (UA) 1000 H Urine Ketones Negative Urine Occult Blood 10 H Urine Nitrite Negative Urine Bilirubin Negative Urine Urobilinogen Normal Ur Leukocyte Esterase 100 H Urine RBC 0-5 SEEN Urine WBC 10-25 SEEN Ur Squamous Epith Cells 0-5 SEEN Urine Bacteria RARE Urine Mucus 0 SEEN Radiography Diagnostic Testing: Clinical Impression(s) from Imaging Studies Abdomen/Pelvis CT 09/04/24 02:47 IMPRESSION: No evidence of acute intra-abdominal process as above. Small amount of anterior pericardial fluid for example axial 19. Right-sided greater than left subcutaneous soft tissue thickening, stranding just beneath the skin surface lower ventral abdominal wall for example axial 106 is more prominent than the prior study etiology of which is unclear, clinically correlate. Reading Location: [facility] EKG Initial EKG: Attestation: I personally reviewed and interpreted this EKG as follows: Comments: Sinus rhythm with ventricular rate of 85 bpm with no acute ST segment changes Discharge Plan Triage Chief Complaint: Abd Pain ED Provider: Ervin Orozco Dx/Rx/DC Orders Clinical Impression: Abdominal pain, GERD (gastroesophageal reflux disease), Gastritis Instructions: ED Abdominal Pain Unkn Cause Fem, ED GERD (Adult), ED Gastritis (Adult) Prescriptions: New lansoprazole [Prevacid] 30 mg capsule,delayed release(DR/EC) 30 mg PO DAILY Qty: 14 0RF No Action Farxiga 10 mg tablet 10 mg PO DAILY insulin lispro [Humalog KwikPen Insulin] 100 unit/mL insulin pen 1 sliding scale dose subcut USEASDIRECTD loratadine 10 mg tablet 10 mg PO QDAY Qty: 7 0RF insulin glargine [Lantus Solostar U-100 Insulin] 100 unit/mL (3 mL) insulin pen 80 unit subcut QHS metformin 1,000 mg tablet 1,000 mg PO BID multivitamin [Daily Multi-Vitamin] Tablet 1 tab PO DAILY brimonidine-timolol [Combigan] 0.2-0.5 % drops 1 drp EACH EYE BID difluprednate 0.05 % drops 1 drp ophthalmic (eye) DAILY Rx Instructions: RIGHT EYE dorzolamide 2 % drops 1 drp ophthalmic (eye) BID albuterol sulfate 90 mcg/actuation HFA aerosol inhaler 2 puff inhalation Q4H PRN PRN (Reason: shortness of breath or wheezing) lisinopril 20 mg tablet 20 mg PO DAILY rosuvastatin 10 mg tablet 10 mg PO DAILY metoprolol tartrate 25 mg Tablet 12.5 mg PO BID 60 Days Qty: 60 0RF Primary Care Provider: Daniel Castorena Referrals: Daniel Castorena MD [Primary Care Provider] - Friend,DO Valdo [Med Staff - Active Staff] - 3-5 Days Print Language: Polish Disposition Disposition: Home, Self Care
[2024-09-04 02:54] LABS: Absolute Lymphocyte Count 2.61 X10^3/uL (0.83-4.51); Absolute Neutrophil Count 4.7 X10^3/uL (2.0-7.7); Basophil# 0.04 X10^3/uL; Basophil% 0.5 % (0-1); Eosinophil# 0.19 X10^3/uL; Eosinophils% 2.3 % (0-5); Hematocrit 42.2 % (37-47); Hemoglobin 13.9 g/dL (12.0-15.0); Lymphocyte # 2.61 X10^3/ul (0.83-4.51); Lymphocyte % 31.4 % (19-41); Mean Corp Hgb Conc 32.9 g/dL (32-36); Mean Corpuscular Hgb 27.9 pg (27.0-32.0); Mean Corpuscular Volume 84.6 fL (81-99); Mean Platelet Vol. 9.9 fl (6.2-12.0); Monocyte# 0.77 X10^3/uL; Monocyte% 9.3 % (0-10); NRBC Flagged by Analyzer 0 % (0-5); Neutrophil # 4.65 X10^3/uL (2.7-7.7); Platelet Count 322 K/mm3 (150-450); RBC Distribution Width CV 13.3 % (11.6-14.6); RBC Distribution Width SD 40.7 fl (35.1-43.9); Red Blood Count 4.99 M/mm3 (4.2-5.4); White Blood Count 8.3 K/mm3 (4.4-11.0)
[2024-09-04 03:05] LABS: Mucous, Urine 0 SEEN /hpf (<or=2+)
[2024-09-04 03:06] LABS: Color, Urine Yellow (Yellow); Glucose, Dipstick 1000 mg/dl (Normal); Ketone-Dipstick Negative (Negative); Leukocyte Esterase-Dipstick 100 /ul (Negative); Nitrite-Dipstick Negative (Negative); Occult Blood-Urine 10 /ul (Negative); Protein-Dipstick 15 mg/dl (Negative); Urine Bilirubin Dipstick Negative (Negative); Urine Clarity Clear (Clear); Urine Urobilinogen Normal (Normal)
[2024-09-04 03:25] LABS: Bacteria RARE /hpf (None Seen); Red Blood Cells-Urine 0-5 SEEN /hpf (0-5); Squamous Epithelial Cells - UA 0-5 SEEN /hpf (5-10); White Blood Cells 10-25 SEEN /hpf (0-5)
[2024-09-04 03:26] LABS: Lipase 32 U/L (13-75); Troponin T High Sensitivity 8 ng/L (<=14)
[2024-09-04 03:28] LABS: ALB/GLOB Ratio 1.4 RATIO (0.9-2.4); AST(SGOT) 23 U/L (<=31); Alanine Aminotransfer ALT/SGPT 20 U/L (<=34); Albumin, Serum 4.2 g/dL (3.5-5.0); Alkaline Phosphatase 64 U/L (35-104); Anion Gap 14 (5-15); BUN 14 mg/dL (4-19); BUN/Creat Ratio 16.2 RATIO (10-20); Calcium,Total 9.5 mg/dL (7.6-11.0); Chloride 103 mmol/L (98-108); Creatinine, Serum 0.85 mg/dL (0.70-1.20); EST Glomerular Filtration Rate 82 (>60); Estimated Creatinine Clearance 101.57 ml/min (50-250); Globulin 2.9 g/dL (2.2-4.2); Glucose 141 mg/dL (70-99); Potassium 4.1 mmol/L (3.3-5.1); Protein, Total 7.1 g/dL (5.9-8.4); Sodium Level 139 mmol/L (133-145); Total Bilirubin 0.94 mg/dL (0.00-1.30)
[2024-09-04 04:00] VITALS: BP 120/81; PULSE 85; RESP 16; O2SAT 98
[2024-09-04] MEDS: Mag Hydrox/Al Hydrox/Simeth 30 ML UDC PO (04:09)
[2024-09-04] MEDS: Lidocaine 2% Viscous15 ML UDC 15 ML PO (04:09)
[2024-09-04 04:15] VITALS: BP 120/8; PULSE 84; RESP 16; TEMP 36.7; O2SAT 99
[2024-09-04] MEDS: Pantoprazole Sodium 40 MG Tablet PO (04:25)
== END 2024-09-04 04:26 | disposition home or self-care (01) ==
PROVIDERS: Emergency Provider Emergency Medicine; PCP Family Medicine; Visit Provider Emergency Medicine
DX: K29.70 Gastritis, unspecified, without bleeding (principal); E11.9 Type 2 diabetes mellitus without complications; Z79.4 Long term (current) use of insulin; K21.9 Gastro-esophageal reflux disease without esophagitis; I10 Essential (primary) hypertension; E78.00 Pure hypercholesterolemia, unspecified; J45.909 Unspecified asthma, uncomplicated; Z79.84 Long term (current) use of oral hypoglycemic drugs; Z79.899 Other long term (current) drug therapy
CPT/HCPCS: 74177; 80053; 81001; 83690; 84484; 85025; 93005; 99284; Q9967; A4216

== ENCOUNTER → 2024-10-15 | Outpatient (CLI) | payer MEDICAID, SELFPAY ==
[2024-10-15 11:06] LABS: Cholesterol 161 mg/dL (<=200); High Density Lipoprotein 50 mg/dL; Low Density Lipoprotein Calc. 79 mg/dL; Triglycerides 161 mg/dL; Very Low Density Lipoprotein 32 mg/dL (5-40); cholesterol:hdl ratio screen 3.25
== END | disposition home or self-care (01) ==
LOC: MFPLAB 09:29
PROVIDERS: PCP Family Medicine; Referring Provider Family Medicine; Visit Provider Family Medicine
DX: E11.9 Type 2 diabetes mellitus without complications (principal)
CPT/HCPCS: 36415; 80061

== ENCOUNTER → 2024-10-20 | Outpatient (CLI) | payer MEDICAID, SELFPAY ==
--- NOTE | 2024-10-20 08:45 | BI_ITS ---
EXAM: SCRN MAMM (CAD)W/DMITRY BILAT DATE: 10/20/2024 CLINICAL HISTORY: F, Age 54 y/o , SCREEN FOR BREAST CANCER Mother with breast cancer. Grandmother with breast cancer. BREAST CANCER RISK ASSESSMENT: Not assessed. TECHNIQUE: Bilateral screening digital breast tomosynthesis with 2D and 3D images. Computer aided detection. COMPARISON: Prior exam(s) dated October 18, 2023.. FINDINGS: TISSUE DENSITY: The breast tissue is almost entirely fatty. Bilateral Breast Mammographic Findings: No significant masses, calcifications or other abnormalities are identified. No suspicious masses, areas of developing architectural distortion, or suspicious calcifications. There has been no significant interval change. BI/SCRN MAMM (CAD)W/DMITRY BILAT IMPRESSION: Stable examination. OVERALL FINAL ASSESSMENT BI-RADS 1: NEGATIVE. RECOMMEND ANNUAL MAMMOGRAPHIC SCREENING. RECOMMENDATION: Routine annual follow-up in 1 Year A letter with findings and recommendations will be mailed to the patient. Reading Location: [place] [id number]
== END | disposition home or self-care (01) ==
LOC: OPBI 08:31
PROVIDERS: PCP Family Medicine; Referring Provider Nurse Practitioner Family; Visit Provider Nurse Practitioner Family
DX: Z12.31 Encounter for screening mammogram for malignant neoplasm of breast (principal)
CPT/HCPCS: 77063; 77067

== ENCOUNTER → 2025-04-15 | Outpatient (CLI) | payer MEDICAID, SELFPAY ==
[2025-04-15 12:54] LABS: AST(SGOT) 18 U/L (<=31); Alanine Aminotransfer ALT/SGPT 23 U/L (<=34); Albumin, Serum 4.2 g/dL (3.5-5.0); Alkaline Phosphatase 64 U/L (35-104); Anion Gap 11 (5-15); BUN 12 mg/dL (4-19); BUN/Creat Ratio 13.6 RATIO (10-20); Calcium,Total 9.8 mg/dL (7.6-11.0); Carbon Dioxide 26.0 mmol/L (21.0-32.0); Chloride 107 mmol/L (98-108); Cholesterol 158 mg/dL (<=200); Globulin 2.7 g/dL (2.2-4.2); Glucose 90 mg/dL (70-99); Low Density Lipoprotein Calc. 84 mg/dL; Potassium 4.3 mmol/L (3.3-5.1); Triglycerides 125 mg/dL; Very Low Density Lipoprotein 25 mg/dL (5-40); cholesterol:hdl ratio screen 3.06
== END | disposition home or self-care (01) ==
LOC: MFPLAB 10:58
PROVIDERS: PCP Family Medicine; Visit Provider Family Medicine
DX: E11.9 Type 2 diabetes mellitus without complications (principal)
CPT/HCPCS: 36415; 80053; 80061